=== PATIENT | female | born 1990 | race Two or more races ===

== ENCOUNTER 2016-06-02 14:49 | Emergency (ER) | payer MEDICAID ==
--- NOTE | 2016-06-02 16:14 | ER Document Report ---
Addendum entered and electronically signed by CINDY URIAS NP 06/02/16 16:18 : Course - Re-evaluation Re-evalutation: 06/02/16 16:17 She is 33 weeks with twins. - Vital Signs Vital signs: Temp Pulse Resp BP Pulse Ox 98.0 F 101 H 18 134/84 H 100 06/02/16 15:56 06/02/16 15:56 06/02/16 15:56 06/02/16 15:56 06/02/16 15:56 Original Note: ED Medical Screen (RME) - General Stated Complaint: VAGINAL PAIN Time seen by provider: 16:16 Mode of Arrival: Ambulatory Information source: Patient Notes: 25-year-old female complaining of a skin tag on the left labia majora since she pulled a tick out one year ago. He got red and swollen to months ago. Worse over the past week. No drainage. I have greeted and performed a rapid initial assessment of this patient. A comprehensive ED assessment, evaluation of the patient, analysis of test results , and completion of the medical decision making process will be contacted by additional ED providers. TRAVEL OUTSIDE OF THE [place] IN LAST 30 DAYS: No Past Medical History Neurological Medical History: Reports: Hx Migraine - Immunizations Hx Diphtheria, Pertussis, Tetanus Vaccination: Yes Physical Exam - Vital signs Vitals: Temp Pulse Resp BP Pulse Ox 98.0 F 101 H 18 134/84 H 100 06/02/16 15:56 06/02/16 15:56 06/02/16 15:56 06/02/16 15:56 06/02/16 15:56 Course - Vital Signs Vital signs: Temp Pulse Resp BP Pulse Ox 98.0 F 101 H 18 134/84 H 100 06/02/16 15:56 06/02/16 15:56 06/02/16 15:56 06/02/16 15:56 06/02/16 15:56
--- NOTE | 2016-06-02 20:53 | ER Document Report ---
ED Skin Rash/Insect Bite/Abscs - General Chief Complaint: Vaginal lip swelling/ pain Stated Complaint: VAGINAL PAIN Time seen by provider: 20:48 Mode of Arrival: Ambulatory Information source: Patient Notes: 25-year-old female presents to ED for a skin tag to her left labia majora that has now become painful. No redness swelling or drainage noted TRAVEL OUTSIDE OF THE [place] IN LAST 30 DAYS: No - HPI Patient complains to provider of: Skin rash/lesion Onset: Other - A year patient states is more tender the last couple weeks Onset/Duration: Intermittent Quality of pain: Sharp - Very irritating when she's putting her clothes on and off she says Severity: Moderate Pain Level: 3 Skin Character: Other - Painful skin tag on the left labia majora Skin Temperature: Warm Quality of rash: Painful Identify cause: No Exacerbated by: Other - When dressing Relieved by: Denies Similar symptoms previously: Yes Recently seen / treated by doctor: Yes - Related Data Allergies/Adverse Reactions: No Known Allergies Allergy (Unverified 06/02/16 21:38) Past Medical History - General Information source: Patient - Social History Smoking Status: Unknown if Ever Smoked Cigarette use (# per day): No Chew tobacco use (# tins/day): No Smoking Education Provided: No Frequency of alcohol use: None Drug Abuse: None Lives with: Family Family History: CAD, CVA, DM, Hyperlipidemia, Hypertension, Malignancy. denies : Thyroid Disfunction Patient has suicidal ideation: No Patient has homicidal ideation: No - Past Medical History Cardiac Medical History: Reports: None Pulmonary Medical History: Reports: None EENT Medical History: Reports: None Neurological Medical History: Reports: Hx Migraine Endocrine Medical History: Reports: None Renal/ Medical History: Reports: None Malignancy Medical History: Reports: None GI Medical History: Reports: None Musculoskeltal Medical History: Reports None Skin Medical History: Reports None Psychiatric Medical History: Reports: None Traumatic Medical History: Reports: None Infectious Medical History: Reports: None Surgical Hx: Negative Past Surgical History: Reports: None - Immunizations Hx Diphtheria, Pertussis, Tetanus Vaccination: Yes Review of Systems - Review of Systems Constitutional: No symptoms reported EENT: No symptoms reported Cardiovascular: No symptoms reported Respiratory: No symptoms reported Gastrointestinal: No symptoms reported Genitourinary: No symptoms reported Female Genitourinary: No symptoms reported Musculoskeletal: No symptoms reported Skin: Other - Painful skin tag to left labia majora Hematologic/Lymphatic: No symptoms reported Neurological/Psychological: No symptoms reported Physical Exam - Vital signs Vitals: Temp Pulse Resp BP Pulse Ox 98.0 F 101 H 18 134/84 H 100 06/02/16 15:56 06/02/16 15:56 06/02/16 15:56 06/02/16 15:56 06/02/16 15:56 Interpretation: Normal - General General appearance: Appears well, Alert - HEENT Head: Normocephalic, Atraumatic Eyes: Normal Pupils: PERRL - Respiratory Respiratory status: No respiratory distress Chest status: Nontender Breath sounds: Normal Chest palpation: Normal - Cardiovascular Rhythm: Regular Heart sounds: Normal auscultation Murmur: No - Abdominal Inspection: Normal Distension: No distension Bowel sounds: Normal Tenderness: Nontender Organomegaly: No organomegaly - Genitourinary External exam: Other - Painful skin tag the left labia majora no swelling or redness noted - Back Back: Normal, Nontender - Extremities General upper extremity: Normal inspection, Nontender, Normal color, Normal ROM , Normal temperature General lower extremity: Normal inspection, Nontender, Normal color, Normal ROM , Normal temperature, Normal weight bearing. No: Lina's sign - Neurological Neuro grossly intact: Yes Cognition: Normal Orientation: AAOx4 Vianney Coma Scale Eye Opening: Spontaneous [place] Coma Scale Verbal: Oriented [place]ian[place] Coma Scale Motor: Obeys Commands Vianney Coma Scale Total: 15 Speech: Normal Motor strength normal: LUE, RUE, LLE, RLE Sensory: Normal - Psychological Associated symptoms: Normal affect, Normal mood - Skin Skin Temperature: Warm Skin Moisture: Dry Skin Color: Normal Skin irregularity: other - Painful skin tag the left labia majora no swelling or redness noted Irregularity with: Tenderness. negative: Swelling, Warmth, Lymphangitis, Induration, Thickening, Scaling, Well defined border, Crusting, Inflammation, Weeping, Rough texture-sand paper, Pityriasis rosea, Other Course - Vital Signs Vital signs: Temp Pulse Resp BP Pulse Ox 98.6 F 112 H 18 124/77 97 06/02/16 21:14 06/02/16 21:14 06/02/16 15:56 06/02/16 21:14 06/02/16 21:14 Procedures - Incision and Drainage Left Labia Time completed: 20:52 Type: Simple Anesthetic type: 1% Lidocaine mL's of anesthetic: 3 Blade size: 11 - Painful skin tag the left labia majora no swelling or redness noted. Patient states that all of her close really irritate the area and one of the skin tag removed. I&D procedure: Betadine prep applied Incision Method: Incision made by scalpel Amount/type of drainage: skin tag removed from left labia majora Discharge - Discharge Clinical Impression: painful skin tag left labia majora Condition: Stable Disposition: HOME, SELF-CARE Additional Instructions: You came in today for painful skin intact to your left labia majora. You stated that over temperature close on and off that this irritated this area. You stated this seemed to be growing for the last couple months. A suture was tied around the skin tag is close to the labia as possible. The area was numbed with lidocaine The area was cleaned well with Betadine and then the skin tag was removed. There was no bleeding or any drainage from the area please have your TWISTING MACHINE OPERATOR remove the suture in the next couple days. Soap Cleansing Gently wash the wound daily using a mild soap (like Ivory, Phisoderm, Neutrogena). Use warm water, rubbing gently until all debris, ooze, and crusting have been washed from the wound. Allow to dry briefly (about 10 minutes) after cleaning. Repeat this cleansing at least three times a day for the first two days and then once or twice a day. Antibiotic Ointment Protection Your wounds are such that dressing them is not practical or optional. After cleansing, you should apply a thin coating of antibiotic ointment ( Bacitracin, not Neosporin) to the wounds at least three times daily. This lessens infection risk, and may decrease the amount of scarring. Use a q-tip or dull butter knife, not your finger, to apply this ointment. Any debris or ooze which builds up in the ointment should be gently rubbed off with a sterile gauze pad. Harder crusting may need to be gently scrubbed off with a clean wash cloth with soap and warm water, perhaps applying a warm, wet wash cloth to the wound for ten minutes first. Development of redness, severe itching, or blistering may mean allergy to the ointment. See the doctor. Acetaminophen Acetaminophen may be taken for pain relief or fever control. It's much safer than aspirin, offering a wider range of "safe" dosages. It is safe during . Some brand names are Tylenol, Panadol, Datril, Anacin 3, Tempra, and Liquiprin. Acetaminophen can be repeated every four hours. The following are maximum recommended dosages: WEIGHT Dose Drops Elixir Chewable( 80mg) (LBS.) drprs=droppers tsp=teaspoon 6 40 mg .4 ml (1/2) 6-11 80 mg .8 ml (full) 1/2 tsp 1 tab 12-16 120 mg 1 1/2 drprs 3/4 tsp 1 1/2 tabs 17-23 160 mg 2 drprs 1 tsp 2 tabs 24-30 240 mg 3 drprs 1 1/2 tsp 3 tabs 30-35 320 mg 2 tsp 4 tabs 36-41 360 mg 2 1/4 tsp 4 1 /2 tabs 42-47 400 mg 2 1/2 tsp 5 tabs 48-53 480 mg 3 tsp 6 tabs 54-59 520 mg 3 1/4 tsp 6 1 /2 tabs 60-64 560 mg 3 1/2 tsp 7 tabs 65-70 600 mg 3 3/4 tsp 7 1 /2 tabs 71-76 640 mg 4 tsp 8 tabs 77-82 720 mg 4 1/2 tsp 9 tabs 83-88 800 mg 5 tsp 10 tabs >89 pounds or adults 650 mg to 900 mg Acetaminophen can be repeated every four hours. Maximum daily dose not to exceed 4000 mg. These maximum recommended dosages are slightly higher than the dosages written on the product container, but these dosages are very safe and well below the toxic dosage for acetaminophen. FOLLOW-UP CARE: If you have been referred to a physician for follow-up care, call the physician s office for an appointment as you were instructed or within the next two days. If you experience worsening or a significant change in your symptoms, notify the physician immediately or return to the Emergency Department at any time for re-evaluation. Forms: Elevated Blood Pressure Referrals: [facility] [Provider Group] - Follow up as needed
[2016-06-02 21:15] VITALS: BP 124/77
== END 2016-06-02 21:38 | disposition home or self-care (01) ==
LOC: ER 14:49
PROC: 0U9MXZZ Drainage of Vulva, External Approach (ICD-10-PCS; principal; 2016-06-02)
DX: N76.4 Abscess of vulva (principal); R10.2 Pelvic and perineal pain
CPT/HCPCS: 99283

== ENCOUNTER 2016-06-07 15:51 | Outpatient (CLI) | payer MEDICAID ==
--- NOTE | 2016-06-07 17:13 | Non Stress Test Report ---
Non Stress Test Datetime Report Generated by CPN: 06/07/2016 17:13 DEMOGRAPHIC Test Number: 1 EGA NST: 34.3 INDICATION Indication for Study: Ordered by Provider MONITORING Monitor Explained: Monitor Explained; Test Explained; Patient Verbalized Understanding Time on Monitor: 06/07/2016 16:19 Time off Monitor: 06/07/2016 17:00 NST Duration: 41 NST INTERVENTIONS NST Interventions: PO Hydration Physician Notified NST: Dr. Pack BABY A: [id number] BABY A Movement : Present Contraction Frequency : Occasional FHR Baseline : 130 Accelerations : 15X15 Decelerations : None Variability : Moderate 6-25bpm NST Review: Meets Criteria for Reactive NST NST Review and Verified By : Kayleigh Hawkins RNC NST Results: Reactive BABY B Movement: Present FHR Baseline: 135 Accelerations: 15X15 Decelerations: Variable Variability: Moderate 6-25bpm NST Review: Meets Criteria for Reactive NST NST Reviewed And Verified By: D Bellavance RNc NST Results: Reactive NST REPORT Report Trigger: Send Report
== END 2016-06-07 17:03 | disposition home or self-care (01) ==
LOC: LC 15:51
PROVIDERS: ATTEND Obstetrics & Gynecology
PROC: 4A1HXCZ Monitoring of Products of Conception, Cardiac Rate, External Approach (ICD-10-PCS; principal; 2016-06-07)
DX: O47.03 False labor before 37 completed weeks of gestation, third trimester (principal); Z3A.34 34 weeks gestation of pregnancy
CPT/HCPCS: 59025

== ENCOUNTER 2016-06-18 14:48 | Inpatient (IN) | payer MEDICAID ==
[~2016-06-18 14:48] MED LIST: DEXAMETHASONE SOD PHOSPHATE INJ 4 MG/1 ML VIAL ONE; KETOROLAC TROMETHAMINE 60 MG/2 ML SDV ONE; ONDANSETRON HCL INJ/PF 4 MG/2 ML SDV ONE
[2016-06-18] MEDS ORDERED: RINGERS SOLUTION,LACTATED 1,000 ML IV PRN ×2 (15:37→20:05)
[2016-06-18] MEDS ORDERED: DEXTROSE 5%-LACTATED RINGERS 1,000 ML IV PRN (15:37)
[2016-06-18] MEDS ORDERED: RINGERS SOLUTION,LACTATED 1,000 ML IV ONE (15:37)
[2016-06-18] MEDS ORDERED: PENICILLIN G POTASSIUM 5,000,000 UNIT in DEXTROSE 5%-WATER 100 ML IV ONE (15:37)
[2016-06-18] MEDS ORDERED: OXYTOCIN/NORMAL SALINE 20 UNIT/1,000 ML RTUINJ ONE ×2 (15:48→17:54)
[2016-06-18] MEDS ORDERED: LIDOCAINE 1% INJ-PF (10 MG/ML) 30 ML SDV ONE (15:48)
[2016-06-18] MEDS ORDERED: MISOPROSTOL 0.2 MG TABLET ONE (15:48)
[2016-06-18] MEDS ORDERED: PENICILLIN G-K 5 MILLION UNIT VIAL ONE (15:48)
--- NOTE | 2016-06-18 16:00 | L&D Flow Sheet ---
LD Flowsheet Datetime Report Generated by CPN: 06/18/2016 16:00 Datetime: 06/18/2016 15:49 Vital Signs NBP Sys/Debra/Mean (mmHg): 132 (QS system process) : 97 (QS system process) : 110 (QS system process) Pulse: 110 (QS system process) Datetime: 06/18/2016 15:30 Vital Signs NBP Sys/Debra/Mean (mmHg): 129 (QS system process) : 81 (QS system process) : 99 (QS system process) Pulse: 102 (QS system process) Datetime: 06/18/2016 15:08 Vital Signs NBP Sys/Debra/Mean (mmHg): 140 (QS system process) : 68 (QS system process) : 97 (QS system process) Pulse: 110 (QS system process)
[2016-06-18 16:02] LABS: APPEARANCE,URINE CLOUDY; BILIRUBIN,URINE NEGATIVE (NEGATIVE); CALCIUM OXALATE CRYSTALS,URINE MODERATE /HPF; GLUCOSE, URINE NEGATIVE (NEGATIVE); KETONES,URINE TRACE mg/dL (NEGATIVE); LEUKOCYTE ESTERASE,URINE LARGE (NEGATIVE); NITRITE,URINE NEGATIVE (NEGATIVE); PROTEIN,URINE 30 mg/dL (NEGATIVE); UROBILINOGEN,URINE NEGATIVE mg/dL (<2.0)
[2016-06-18 16:13] LABS: URINE BARBITURATES SCREEN NEGATIVE; URINE METHADONE SCREEN NEGATIVE; URINE OPIATES LOW NEGATIVE; URINE PHENCYCLIDINE SCREEN NEGATIVE
[2016-06-18 16:31] LABS: ABSOLUTE LYMPHOCYTES (AUTO) 1.8 10^3/uL (0.5-4.7); ABSOLUTE MONOCYTES (AUTO) 0.8 10^3/uL (0.1-1.4); ABSOLUTE NEUT (AUTO) 7.5 10^3/uL (1.7-8.2); BASOPHILS % (AUTO) 0.5 % (0-2); EOSINOPHILS % (AUTO) 0.3 % (0-6); HEMATOCRIT 30.7 % (36.0-47.0); HEMOGLOBIN 9.9 g/dL (12.0-15.5); LYMPHOCYTES % (AUTO) 17.9 % (13-45); MEAN CORPUSCULAR HGB CONC 32.2 g/dL (32.0-36.0); MEAN CORPUSCULAR VOLUME 71 fl (80-97); MONOCYTES % (AUTO) 7.9 % (3-13); RED BLOOD COUNT 4.29 10^6/uL (3.72-5.28); SEGMENTED NEUTROPHILS % (AUTO) 73.4 % (42-78); WHITE BLOOD COUNT 10.2 10^3/uL (4.0-10.5)
[2016-06-18] MEDS ORDERED: FENTANYL CITRATE INJ/PF 100 MCG/2 ML AMPUL ONE ×2 (16:39→17:54)
[2016-06-18] MEDS ORDERED: FENTANYL/BUPIVACAINE/NS/PF 200 MCG/100 ML RTUINJ EPI ONE (16:40)
[2016-06-18] MEDS ORDERED: EPHEDRINE SULFATE INJ 50 MG/1 ML AMPULE ONE (16:40)
[2016-06-18] MEDS ORDERED: PHENYLEPHRINE HCL INJ/PF 10 MG/1 ML SDV ONE (16:40)
[2016-06-18] MEDS ORDERED: BUPIVACAINE HCL 0.25 % INJ/PF (2.5 MG/1 ML) 30 ML VIAL ONE (16:40)
[2016-06-18] MEDS ORDERED: LIDOCAINE 2%/EPINEPHRINE INJ 20 ML VIAL ONE ×2 (17:13→17:51)
[2016-06-18] MEDS ORDERED: SODIUM BICARBONATE 8.4% INJ 50 MEQ/50 ML DISP.SYRIN ONE (17:14)
[2016-06-18] MEDS ORDERED: KETAMINE HCL INJ 500 MG/10 ML VIAL ONE (17:54)
[2016-06-18] MEDS ORDERED: OXYTOCIN 10 UNIT/ML VIAL ONE (17:54)
[2016-06-18] MEDS ORDERED: MIDAZOLAM 2 MG/2 ML INJ ONE (17:55)
[2016-06-18] MEDS ORDERED: CEFAZOLIN 1 GM/D5W RTU 1 GM/50 ML RTUPB IV ONE (17:59)
--- NOTE | 2016-06-18 18:00 | L&D Flow Sheet ---
LD Flowsheet Datetime Report Generated by CPN: 06/18/2016 18:00 Datetime: 06/18/2016 16:29 NBP Sys/Debra/Mean (mmHg): 137 (QS system process) : 76 (QS system process) : 101 (QS system process) Pulse: 85 (QS system process) Datetime: 06/18/2016 16:18 NBP Sys/Debra/Mean (mmHg): 136 (QS system process) : 81 (QS system process) : 104 (QS system process) Pulse: 98 (QS system process) Datetime: 06/18/2016 16:05 Dilatation (cm): 6.0 (Irma Bellavance, RNC) Effacement (%): 90 (Irma Bellavance, RNC) Station: -1 (Irma Bellavance, RNC) Exam by: GLYNN Hackett (Irma Bellavance, RNC) Membrane Status: Ruptured (Irma Bellavance, RNC) Membranes Rupture Method: Artificial (Irma Bellavance, RNC) Amniotic Fluid Color: Clear (Irma Bellavance, RNC) Amniotic Fluid Amount: Moderate (Irma Bellavance, RNC) Amniotic Fluid Odor: Normal (Irma Bellavance, RNC) Vaginal Bleeding: None (Irma Bellavance, RNC) Cervix, Consistency: Moderate (Irma Bellavance, RNC) Cervix, Position: Anterior (Irma Bellavance, RNC) Antibiotics: Penicillin IV (Units) @ 5 Mill (Irma Bellavance, RNC) Datetime: 06/18/2016 16:00 Pain Scale: 3 (Irma Bellavance, RNC) Pain Presence: Intermittent (Irma Bellavance, RNC) Pain Type: Cramping; Contraction (Irma Bellavance, RNC) Pain Location: Abdomen; Back (Irma Bellavance, RNC) Pain Goal: 1 (Irma Bellavance, RNC) Vaginal Bleeding: None (Irma Bellavance, RNC) Level of Consciousness: Fully Conscious (Irma Bellavance, RNC) Headache: Denies (Irma Bellavance, RNC) Breath Sounds, Left: Clear and Equal (Irma Bellavance, RNC) Breath Sounds, Right: Clear and Equal (Irma Bellavance, RNC) Nausea/Vomiting: Denies (Irma Bellavance, RNC) RUQ Epigastric Pain: Denies (Irma Bellavance, RNC)
[2016-06-18] MEDS ORDERED: ACETAMINOPHEN 100 ML IV ONE (18:39)
[2016-06-18] MEDS ORDERED: MEPERIDINE HCL/PF INJ 25 MG/1 ML DISP.SYRIN ONE (19:16)
[2016-06-18] MEDS ORDERED: PENICILLIN G POTASSIUM 2,500,000 UNIT in DEXTROSE 5%-WATER 50 ML IV SCH (19:39)
[2016-06-18] MEDS ORDERED: PENICILLIN G-K 5 MILLION UNIT VIAL IV SCH (20:00)
[2016-06-18] MEDS ORDERED: MEASLES,MUMPS&RUBELLA VACC/PF 0.5 ML VIAL SUBCUT PRN (20:05)
[2016-06-18] MEDS ORDERED: PROMETHAZINE HCL INJ 25 MG/1 ML VIAL IV PRN (20:05)
[2016-06-18] MEDS ORDERED: ACETAMINOPHEN 325 MG TABLET PO PRN (20:05)
[2016-06-18] MEDS ORDERED: OXYCODONE-ACETAMINOPHEN 5-325 MG TABLET PO PRN (20:05)
[2016-06-18] MEDS ORDERED: OXYTOCIN/NORMAL SALINE 1,000 ML IV PRN (20:05)
[2016-06-18] MEDS ORDERED: DIPH/PERTUSS(ACELL)/TETANUS VAC/PF 0.5 ML SYR (>=10YO) IM PRN (20:05)
--- NOTE | 2016-06-18 20:11 | Admission Physical ---
Datetime Report Generated by CPN: 06/18/2016 20:11 CURRENT ADMISSION Chief Complaint: Uterine Contractions Indication for Induction- Other: twin gestation di/di Admit Plan: Admit to Unit ALLERGIES Medication Allergies: No Medication Allergies: No Known Allergies (06/07/2016) Latex: No Latex Allergies Food Allergies: N/A Environmental Allergies: N/A OBSTETRICAL HISTORY EDC: 07/16/2016 00:00 : 3 Para: 1 Term: 1 : 0 Ectopic: 0 Livin Cesareans: 0 VBACs: 0 Multiple Births: 0 Gestational Diabetes: Yes Rh Sensitization: No Incompetent Cervix: No NICKY: No Infertility: No ART Treatment: No Uterine Anomaly: No IUGR: No Hx Previous C/S: No Macrosomia: No Hx Loss/Stillborn: No PIH: No Hx : No Placenta Previa/Abruption: No Depression/PP Depression: Yes PTL/PROM: No Post Hemorrhage: No Current Procedures: NST Obstetrical History Comments: 2008 baby boy, 8 lb 0 oz, 3 hours labor Current: Twin A breech, Marginal cord insertion; Late PNC; GDM -Diet controlled SEE RECORDS Alcohol: No Marijuana : No Cocaine: No Other Illicit Drugs: No Cigarettes: Former Smoker. 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 Heart Disease: No Hosp/Surgery: No Autoimmune Disorder: No Anesthetic Complications: No Kidney Disease: No Abnormal Pap Smear: No Neuro/Epilepsy: No Psychiatric Disorders: No Other Medical Diseases: Yes Hepatitis/Liver Disease: No Significant Family History: No Varicosities/Phlebitis: No Trauma/Violence : No Thyroid Dysfunction: No Medical History Comments: GDM: Diet controlled Depression: History of depression INFECTIOUS HISTORY Gonorrhea: No Genital Herpes: Yes Chlamydia: No Tuberculosis: No Syphilis: No Hepatitis: No HIV/AIDS Exposure: No Rash or Viral Illness: No HPV: No Infectious History Comments: HSV: Diagnosed 2013 PHYSICAL EXAM General: Normal HEENT: Normal Neurologic: Normal Thyroid: Normal Heart: Normal Lungs: Normal Breast: Normal Back: Normal Abdomen: Normal Genitourinary Exam: Normal Extremities: Normal DTRs: Normal Pelvic Type: Adequate FETUS A EGA: 36.0 Monitoring: External US Accelerations: 15X15 Decelerations: None Presentation: Vertex Admit Comment: 25 yo admitted for advanced cervical dilatation EDC 07/16/16 unremarkable phx unknown GBS abdomen nontender FHTS reactive uterine contractions 2-3 min cervix 6-7/c/-1 Twin Gestation di/ di twins admit GBs prophylaxis anticipate FETUS B Monitoring: External US; Auscultation PLANS FOR LABOR AND DELIVERY Labor and Delivery: None Pain Management: Epidural Feeding Preference: Formula Benefit of Breast Feed Discussed: Yes Circumcision: Yes INFORMED CONSENT Assignment: Lana Pack MD Signature: with User ID: [email or web address] : with User ID: [email or web address]
[2016-06-18] MEDS: HYDROMORPHONE HCL INJ/PF 2 MG/ML AMPULE IV PRN (20:46)
[2016-06-18] MEDS: KETOROLAC TROMETHAMINE INJ/PF 30 MG/1 ML SDV IV SCH (21:59)
[2016-06-18] MEDS: OXYCODONE-ACETAMINOPHEN 5-325 MG TABLET PO PRN (23:24)
[2016-06-19] MEDS: HYDROMORPHONE HCL INJ/PF 2 MG/ML AMPULE IV PRN (01:14)
[2016-06-19] MEDS: KETOROLAC TROMETHAMINE INJ/PF 30 MG/1 ML SDV IV SCH ×2 (05:35→13:32)
--- NOTE | 2016-06-19 07:00 | L&D Flow Sheet ---
LD Flowsheet Datetime Report Generated by CPN: 06/19/2016 07:00 Datetime: 06/18/2016 20:06 Pulse: 86 (QS system process) SpO2 (%): 87 (QS system process) Datetime: 06/18/2016 20:01 NBP Sys/Debra/Mean (mmHg): 134 (QS system process) : 70 (QS system process) : 94 (QS system process) Pulse: 90 (QS system process) Pulse: 88 (QS system process) Respirations: 18 (Nicci Twyla, RN) SpO2 (%): 88 (QS system process) Temperature (F): 97.9 (Nicci Wakefield, RN) Temperature (C): 36.6 (QS system process) Temperature Route: Axillary (Nicci Wakefield, RN) Datetime: 06/18/2016 19:57 Pulse: 113 (QS system process) SpO2 (%): 91 (QS system process) Pain Presence: None/Denies (Nicci Wakefield RN) Datetime: 06/18/2016 19:56 Pulse: 112 (QS system process) SpO2 (%): 99 (QS system process) Datetime: 06/18/2016 19:51 Pulse: 92 (QS system process) SpO2 (%): 100 (QS system process) Datetime: 06/18/2016 19:47 NBP Sys/Debra/Mean (mmHg): 134 (QS system process) : 66 (QS system process) : 93 (QS system process) Pulse: 93 (QS system process) Datetime: 06/18/2016 19:46 Pulse: 91 (QS system process) SpO2 (%): 100 (QS system process) Datetime: 06/18/2016 19:41 Pulse: 88 (QS system process) SpO2 (%): 100 (QS system process) Datetime: 06/18/2016 19:36 Pulse: 96 (QS system process) SpO2 (%): 100 (QS system process) Datetime: 06/18/2016 19:31 Pulse: 90 (QS system process) SpO2 (%): 100 (QS system process) Datetime: 06/18/2016 19:30 NBP Sys/Debra/Mean (mmHg): 126 (QS system process) : 60 (QS system process) : 87 (QS system process) Pulse: 98 (QS system process) Respirations: 20 (Nicci Twyla, RN) Pain Presence: None/Denies (Nicci Twyla, RN) Datetime: 06/18/2016 19:26 NBP Sys/Debra/Mean (mmHg): 136 (Annotations: cuff placed on right leg where shaking is not as severe ) (Nicci Twyla, RN) : 62 (QS system process) : 89 (QS system process) Pulse: 93 (QS system process) Pulse: 97 (QS system process) SpO2 (%): 100 (QS system process) Datetime: 06/18/2016 19:21 Pulse: 115 (QS system process) SpO2 (%): 91 (QS system process) Datetime: 06/18/2016 19:20 NBP Sys/Debra/Mean (mmHg): 180 (QS system process) : 142 (QS system process) : 156 (QS system process) Pulse: 108 (QS system process) Datetime: 06/18/2016 19:16 NBP Sys/Debra/Mean (mmHg): 184 (QS system process) : 132 (QS system process) : 154 (QS system process) Pulse: 104 (QS system process) Pulse: 116 (QS system process) SpO2 (%): 93 (QS system process) Datetime: 06/18/2016 19:13 Pulse: 118 (QS system process) SpO2 (%): 94 (QS system process) Datetime: 06/18/2016 19:11 Pulse: 115 (QS system process) SpO2 (%): 96 (QS system process) Datetime: 06/18/2016 19:09 NBP Sys/Debra/Mean (mmHg): 185 (QS system process) : 116 (QS system process) : 146 (QS system process) Pulse: 116 (QS system process) Datetime: 06/18/2016 19:06 Pulse: 108 (QS system process) SpO2 (%): 95 (QS system process) Datetime: 06/18/2016 19:01 Pulse: 106 (QS system process) Pulse: 107 (QS system process) SpO2 (%): 91 (QS system process) SpO2 (%): 96 (QS system process) Datetime: 06/18/2016 19:00 Stage of : Recovery (Irma Bellavance, RNC) Pulse: 100 (Irma Bellavance, RNC) Respirations: 16 (Irma Bellavance, RNC) SpO2 (%): 98 (Irma Bellavance, RNC)
[2016-06-19 07:23] LABS: HEMATOCRIT 29.5 % (36.0-47.0); HEMOGLOBIN 9.4 g/dL (12.0-15.5); HGB HCT DIFFERENCE -1.3; MEAN CORPUSCULAR HEMOGLOBIN 22.6 pg (27.0-33.4); MEAN CORPUSCULAR VOLUME 71 fl (80-97); RED BLOOD COUNT 4.18 10^6/uL (3.72-5.28); WHITE BLOOD COUNT 18.6 10^3/uL (4.0-10.5)
[2016-06-19] MEDS: DOCUSATE SODIUM 100 MG CAPSULE PO SCH ×2 (10:37→18:46)
[2016-06-19] MEDS: PRENATAL VITAMIN W-O CA NO5/FE FUMARATE/FA CAPSULE PO SCH (10:37)
[2016-06-19] MEDS: OXYCODONE-ACETAMINOPHEN 5-325 MG TABLET PO PRN ×3 (11:25→23:01)
--- NOTE | 2016-06-19 14:10 | PDOC PROGRESS REPORT ---
Subjective-OB Subjective: Post Delivery Day: 25 year old. Denies any needs at this time. Pt doing well, no concerns. She reports light bleeding, regular diet and voiding well. Physical Exam (OB) Vital Signs: Temp Pulse Resp BP Pulse Ox 97.7 F 79 18 131/65 H 98 06/19/16 13:19 06/19/16 13:19 06/19/16 13:19 06/19/16 13:19 06/19/16 13:19 Intake & Output 06/18/16 06/19/16 06/20/16 06:59 06:59 06:59 Intake Total 2900 Output Total 2400 500 Balance 500 -500 Weight 96.615 kg - Dressing Removed: No Incision: Dressing - Lochia Lochia Amount: Scant < 10 ml Lochia Color: Rubra/Red - Abdomen Description: Tender, Soft, Round Hernia Present: No Fundal Description: Firm, Midline Fundal Height: u/u - u/2 Objective-Diagnostic Laboratory: 06/19/16 06:50 06/18/16 06/18/16 06/18/16 15:25 16:06 16:06 WBC 10.2 RBC 4.29 Hgb 9.9 L Hct 30.7 L MCV 71 L MCH 23.0 L MCHC 32.2 RDW 18.0 H Plt Count 217 Seg Neutrophils % 73.4 Lymphocytes % 17.9 Monocytes % 7.9 Eosinophils % 0.3 Basophils % 0.5 Absolute Neutrophils 7.5 Absolute Lymphocytes 1.8 Absolute Monocytes 0.8 Absolute Eosinophils 0.0 Absolute Basophils 0.0 Urine Color VINICIO Urine Appearance CLOUDY Urine pH 5.0 Ur Specific [place] 1.020 Urine Protein 30 H Urine Glucose (UA) NEGATIVE Urine Ketones TRACE H Urine Blood NEGATIVE Urine Nitrite NEGATIVE Ur Leukocyte Esterase LARGE H Urine WBC (Auto) 11 Urine RBC (Auto) 7 Blood Type O POSITIVE Antibody Screen NEGATIVE 06/19/16 06:50 WBC 18.6 H RBC 4.18 Hgb 9.4 L Hct 29.5 L MCV 71 L MCH 22.6 L MCHC 32.0 RDW 18.0 H Plt Count 206 Seg Neutrophils % Lymphocytes % Monocytes % Eosinophils % Basophils % Absolute Neutrophils Absolute Lymphocytes Absolute Monocytes Absolute Eosinophils Absolute Basophils Urine Color Urine Appearance Urine pH Ur Specific [place] Urine Protein Urine Glucose (UA) Urine Ketones Urine Blood Urine Nitrite Ur Leukocyte Esterase Urine WBC (Auto) Urine RBC (Auto) Blood Type Antibody Screen Assessment and Plan(PN) - Assessment and Plan (1) Twin delivered vaginally Is this a current diagnosis for this admission?: Yes (2) Twin, delivered by Is this a current diagnosis for this admission?: Yes - Time Spent with Patient Time with patient: Less than 15 minutes Medications reviewed and adjusted accordingly: Yes - Disposition Anticipated Discharge: Home
--- NOTE | 2016-06-19 18:00 | L&D Current Admission ---
Current Admit Datetime Report Generated by CPN: 06/19/2016 18:00 ADMISSION INFORMATION Current Admit Date/Time: 06/18/2016 16:00 (06/18/2016 16:00:KATRINA Madden) Reason for Admission: Other; Labor Check/Investigation of Chief Complaint (06/18/2016 16:00:KATRINA Madden) Chief Complaint: Other (Annotations: PT admitted from [facility] ) (06/18/2016 16:00:KATRINA Madden) Medications During : Diphenhydramine (Benedryl); Vitamin; Acetaminophen (Tylenol); Rantidine (Zantac) (06/18/2016 16:00:KATRINA Madden) Meds During -Oth: Also took antibiotic for UTI (06/18/2016 16:00:KATRINA Madden) EGA per Dates: 36.0 (06/18/2016 16:00:QS system process) Method of Arrival: Wheelchair (06/18/2016 16:00:KATRINA Madden) Admitted From: Dr. Forerst (06/18/2016 16:00:KATRINA Madden) Reason for Induction- Other: PT admitted from [facility] (06/18/2016 16:00:KATRINA Madden) Records Available: Yes (06/18/2016 16:00:KATRINA Madden) General Admission Information: Reviewed (06/18/2016 16:00:KATRINA Madden) BELONGINGS/ADVANCED DIRECTIVES Disposition of Belongings: Kept with Patient (06/18/2016 16:00:KATRINA Madden) Comments Regarding Disposition: Kept with patients layla (Jemal Alonzo) (06/18/2016 16:00:KATRINA Madden) Advance Direct for Healthcare: No, and Wants No Information (06/18/2016 16:00:KATRINA Madden) Durable Power of Operator Control Room: No (06/18/2016 16:00:KATRINA Madden) Living Will: No (06/18/2016 16:00:KATRINA Madden) Organ Donor: No (06/18/2016 16:00:KATRINA Madden) Pt Rights Information Given: Yes (06/18/2016 16:00:KATRINA Madden) Pt Understands Pt Rights: Yes (06/18/2016 16:00:KATRINA Madden) LEARNING ASSESSMENT Knowledge Level: Understands L_D Process (06/18/2016 16:00:Irma Hawkins RNC) Barriers to Learning: None (06/18/2016 16:00:Irma Hawkins RNC) Learning Readiness: Motivated (06/18/2016 16:00:Irma Hawkins RNC) Learns Best By: 1 to 1 Instruction; Reading; Videos; Group Discussion; Demonstration (06/18/2016 16:00:Irma Hawkins RNC) Learning Needs: Labor and Delivery Process; Pain Management; Symptoms to Report; Treatment Plan; Medication; Diagnosis; Nutrition; Equipment; Infant Care (06/18/2016 16:00:Irma Pembertone, RNC) NUTRITIONAL/FUNCTIONAL SCREENING Problem with Appetite >5 Days: No (06/18/2016 16:00:Irma Sobiance, RNC) Chew/Swallow Difficulties: No (06/18/2016 16:00:Irma Bellavance, RNC) Inappropriate Wt Gain/Loss: No (06/18/2016 16:00:Irma Belldomnce, RNC) Presence Skin Breakdown/Ulcer: No (06/18/2016 16:00:KATRINA Madden) Special Diet: No (06/18/2016 16:00:KATRINA Madden) Pt Requests Ship Pilot Visit: Chary (06/18/2016 16:00:KATRINA Madden) Hx of Any of the Following?: N/A (06/18/2016 16:00:KATRINA Madden) New Diagnosis of: Gest Diabetes; Multiple Gestation (06/18/2016 16:00:KATRINA Madden) Requires Assist w/Ambulation: Chary (06/18/2016 16:00:KATRINA Madden) Uses Assist Device to Ambulate: Chary (06/18/2016 16:00:KATRINA Madden) Pt Requires Help w/ADL's: Chary (06/18/2016 16:00:KATRINA Madden)
--- NOTE | 2016-06-19 18:00 | L&D General Admission ---
General Admit Datetime Report Generated by CPN: 06/19/2016 18:00 INFORMATION Patient Age: 25 (05/20/2016 13:54:QS system process) EDC: 07/16/2016 00:00 (06/07/2016 16:24:Christine Green RN) : 3 (06/07/2016 16:24:Christine Green RN) Para: 1 (06/07/2016 16:24:Freya Soares RN) Term: 1 (06/07/2016 16:24:Christine Green RN) : 0 (06/07/2016 16:24:Christine Green RN) Livin (06/07/2016 16:24:Christine Green RN) Cesareans: 0 (06/07/2016 16:24:Christine Green RN) VBACs: 0 (06/07/2016 16:24:Christine Green RN) Ectopic: 0 (06/07/2016 16:24:Christine Green RN) Multiple Births: 0 (06/07/2016 16:24:Christine Green RN) Baby, Number in Womb: 2 (06/07/2016 16:24:Christine Green RN) CARE Primary Unix Administrator: [facility] (06/07/2016 16:24:Christine Green RN) Month of 1st Visit: 01/2016 (06/07/2016 16:24:Christine Green RN) Adequate Care: No (06/07/2016 16:24:Christine Green RN) Prepregnancy Weight (lb): 183 (06/07/2016 16:24:Freya Soares RN) Prepregnancy Weight (kg): 83.2 (06/07/2016 16:24:QS system process) Height (in): 63 (06/19/2016 11:36:QS system process) ALLERGIES Medication Allergy: No (06/07/2016 16:24:Christine Green RN) Medication Allergies: No Known Allergies (06/07/2016) (06/07/2016 16:22:QS system process) Latex Allergy: No Latex Allergies (06/07/2016 16:24:Christine Green RN) Food Allergies: N/A (06/07/2016 16:24:Christine Green RN) Environmental Allergies: N/A (06/07/2016 16:24:Christine Green RN) COMMUNICATION Primary Language: S[place] Tomean (06/07/2016 16:24:Christine Green RN) Medical Tx Preferred Language: [place]an (06/07/2016 16:24:Christine Green RN) Communication Barrier(s): None (06/07/2016 16:24:Christine Green RN) DEMOGRAPHICS Address: [address] [place] [address] [place] [address] (06/02/2016 21:38:QS system process) Zipcode: [address] (05/20/2016 13:54:QS system process) Home (05/20/2016 13:54:QS system process) N: [phone] (05/20/2016 13:54:QS system process) Next of Kin Name: ROBBIE SONI (05/20/2016 13:54:QS system process) Next of Kin (05/20/2016 13:54:QS system process) Next of Kin Relationship: OR (05/20/2016 13:54:QS system process) Date of : 1990 (05/20/2016 13:54:QS system process) Marital Status: Single (05/20/2016 13:54:QS system process) Sex: Female (05/20/2016 13:54:QS system process) Race: Other (05/20/2016 13:54:QS system process) Ethnicity: or (05/20/2016 13:54:QS system process) Restorationism: None (05/20/2016 13:54:QS system process) DRUG AND ALCOHOL USE Alcohol: No (06/07/2016 16:24:Christine Green RN) Cigarettes: Former Smoker. [id number] (06/07/2016 16:24:Christine Green RN) Marijuana: No (06/07/2016 16:24:Christine Green RN) Cocaine: No (06/07/2016 16:24:Christine Green RN) Other Illicit Drugs: No (06/07/2016 16:24:Christine Green RN) VACCINE HISTORY Influenza Vaccine: No (06/07/2016 16:24:Christine Green RN) Pneumococcal Vaccine: No (06/07/2016 16:24:Christine Green RN) Tetanus Vaccine: Yes (06/07/2016 16:24:Christine Green RN) Tdap Vaccine: Yes (06/07/2016 16:24:Christine Green RN) Hepatitis B Vaccine: Yes (06/07/2016 16:24:Christine Green RN) Felt Hat Steamer: [facility] (06/07/2016 16:24:KATRINA Madden) Feeding Preference: Formula (06/07/2016 16:24:Christine Green RN) Benefit of Breast Feed Discussed: Yes (06/07/2016 16:24:Christine Green RN) Circumcision: Yes (06/07/2016 16:24:Christine Green RN) Classes Attended: No (06/07/2016 16:24:Christine Green RN) Tubal Ligation: Yes (06/07/2016 16:24:Christine Green RN) Tubal Authorization Signed: Yes (06/07/2016 16:24:Christine Green RN) Consent Signed: Yes (06/07/2016 16:24:KATRINA Vasquez) Pain Management Plans: Epidural (06/07/2016 16:24:KATRINA Madden) Plans for Labor and Delivery: None (06/07/2016 16:24:KATRINA Madden) Support Person: Robbie Chavez (06/07/2016 16:24:Christine Green RN) Support Person Relationship: Significant Other (06/07/2016 16:24:Christine Green RN) Cultural/Spritual Practice: No (06/07/2016 16:24:Christine Green RN) Spir/Cult Dietary Needs: No (06/07/2016 16:24:Christine Green RN) LIVING SITUATION/DISCHARGE PLAN Living Arrangements: Apartment (06/07/2016 16:24:Christine Green RN) Adequate Access to:: Electric; Heat; Refrigeration; Plumbing/Running water; Phone; Transportation (06/07/2016 16:24:Christine Green RN) WIC Program: Yes (06/07/2016 16:24:Christine Green RN) Discharge Child Day Care Teacher Person: FOB (06/07/2016 16:24:Christine Green RN) Person to Help after Discharge: FOB (06/07/2016 16:24:Christine Green RN) Currently Using Commun Resources: Yes (06/07/2016 16:24:Christine Green RN) Specify Current Resource Used: Medicaid (06/07/2016 16:24:Christine Green RN) Outside Agency/Elementary School Teacher'S Aide: No (06/07/2016 16:24:Christine Green RN) Car Seat for Discharge: Yes (06/07/2016 16:24:Christine Green RN) Adoption Requested: No (06/07/2016 16:24:Christine Green RN) Pt Contact w/infant Post : N/A (06/07/2016 16:24:Christine Green RN) LABS Blood Type: O Positive (06/07/2016 16:24:Freya Soares RN) Antibody Screen: negative (06/07/2016 16:24:Freya Soares RN) Hemoglobin: 9.4 L (06/19/2016 06:50:QS system process) Hematocrit: 29.5 L (06/19/2016 06:50:QS system process) MCV: 71 L (06/19/2016 06:50:QS system process) Group Beta Strep: unknown (06/07/2016 16:24:Maurizio Rome CNM) RPR/VDRL: Nonreactive (06/07/2016 16:24:Freya Soares RN) HIV Exposure Test: Positive (06/07/2016 16:24:Freya Soares RN) Hepatitis B: Negative (06/07/2016 16:24:Freya Soares RN) Rubella: Immune (06/07/2016 16:24:Freya Soares RN) Varicella: Non Susceptible (06/07/2016 16:24:Freya Soares RN) OB/PREVIOUS HISTORY Current Procedures: NST (06/07/2016 16:24:Christine Green RN) History of Previous : No (06/07/2016 16:24:Christine Green RN) History of Gestational Diabetes: Yes (06/07/2016 16:24:Christine Green RN) History of PIH: No (06/07/2016 16:24:Christine Green RN) History of Incompetent Cervix: No (06/07/2016 16:24:Christine Green RN) History of Placenta Previa/Abrup: No (06/07/2016 16:24:Christine Green RN) History of Macrosomia: No (06/07/2016 16:24:Christine Green RN) History of IUGR: No (06/07/2016 16:24:Christine Green RN) History of Hemorrhage: No (06/07/2016 16:24:Christine Green RN) History of Loss/Stillborn: No (06/07/2016 16:24:Christine Green RN) History of : No (06/07/2016 16:24:Christine Green RN) History of D (Rh) Sensitization: No (06/07/2016 16:24:Christine Green RN) History Recurrent Loss/Stillborn: No (06/07/2016 16:24:Christine Green RN) History Depression/PP Depression: Yes (06/07/2016 16:24:Christine Green RN) History of Uterine Anomaly/NICKY: No (06/07/2016 16:24:Christine Green RN) History of Infertility: No (06/07/2016 16:24:Christine Green RN) History of ART Treatment: No (06/07/2016 16:24:Christine Green RN) History of NICKY: No (06/07/2016 16:24:Christine Green RN) Comments Obstetrical History: 2008 baby boy, 8 lb 0 oz, 3 hours labor Current: Twin A breech, Marginal cord insertion; Late PNC; GDM -Diet controlled (06/07/2016 16:24:Christine Green RN) MEDICAL HISTORY Med Hx Diabetes: Yes (06/07/2016 16:24:Christine Green RN) Diabetes Type: Gestational Diabetes (06/07/2016 16:24:Christine Green RN) Med Hx Hypertension: No (06/07/2016 16:24:Christine Green RN) Med Hx Heart Disease: No (06/07/2016 16:24:Christine Green RN) Med Hx Autoimmune Disorder: No (06/07/2016 16:24:Christine Green RN) Med Hx Kidney Disease/UTI: No (06/07/2016 16:24:Christine Green RN) Med Hx Neurologic/Epilepsy: No (06/07/2016 16:24:Christine Green RN) Med Hx Psychiatric Disorders: No (06/07/2016 16:24:Christine Green RN) Med Hx Hepatitis/Liver Disease: No (06/07/2016 16:24:Christine Green RN) Med Hx Varicosities/Phlebitis: No (06/07/2016 16:24:Christine Green RN) Med Hx Thyroid Dysfunction: No (06/07/2016 16:24:Chirstine Green RN) Med Hx Trauma/Violence: No (06/07/2016 16:24:Christine Green RN) Med Hx Blood Transfusion: No (06/07/2016 16:24:Christine Green RN) Med Hx Pulmonary (Asthma,TB): No (06/07/2016 16:24:Christine Green RN) Med Hx Breast: No (06/07/2016 16:24:Christine Green RN) 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 (06/07/2016 16:24:Christine Green RN) Med Hx Hospitalization/Surgery: No (06/07/2016 16:24:Christine Green RN) Med Hx Anesthetic Complications: No (06/07/2016 16:24:Christine Green RN) Med Hx Abnormal Pap Smear: No (06/07/2016 16:24:Christine Green RN) Other Medical Diseases: Yes (06/07/2016 16:24:Christine Green RN) Med Hx Significant Family Hx: No (06/07/2016 16:24:Christine Green RN) Details of Med/Surg Hx: GDM: Diet controlled Depression: History of depression (06/07/2016 16:24:Christine Green RN) INFECTIOUS HISTORY Inf Hx Gonorrhea: No (06/07/2016 16:24:Christine Green RN) Inf Hx Chlamydia: No (06/07/2016 16:24:Christine Green RN) Inf Hx Syphilis: No (06/07/2016 16:24:Christine Green RN) Inf Hx HIV/AIDS: No (06/07/2016 16:24:Christine Green RN) Inf Hx Human Papilloma Virus: No (06/07/2016 16:24:Christine Green RN) Inf 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 (06/07/2016 16:24:Christine Green RN) Inf Hx Tuberculosis/Exposure: No (06/07/2016 16:24:Christine Green RN) Inf Hx Hepatitis B,C: No (06/07/2016 16:24:Christine Green RN) Inf Hx Rash or Viral Illness: No (06/07/2016 16:24:Christine Green RN) Details of Infectious Hx: HSV: Diagnosed 2013 (06/07/2016 16:24:Christine Green RN) GENETIC HISTORY Gen Hx Age >=35 at BOB: No (06/07/2016 16:24:Christine Green RN) Gen Hx Thalassemia: No (06/07/2016 16:24:Christine Green RN) Gen Hx Congenital Heart Defect: No (06/07/2016 16:24:Christine Green RN) Gen Hx Neural Tube Defect: No (06/07/2016 16:24:Christine Green RN) Gen Hx Down's Syndrome: No (06/07/2016 16:24:Christine Green RN) Gen Hx Josue-Sachs: No (06/07/2016 16:24:Christine Green RN) Gen Hx Tristan: No (06/07/2016 16:24:Christine Green RN) Gen Hx Familial Dysautonomia: No (06/07/2016 16:24:Christine Green RN) Gen Hx Sickle Cell Disease/Trait: No (06/07/2016 16:24:Christine Green RN) Gen Hx Hemophilia/Blood Disorder: No (06/07/2016 16:24:Christine Green RN) Gen Hx Muscular Dystrophy: No (06/07/2016 16:24:Christine Green RN) Gen Hx Cystic Fibrosis: No (06/07/2016 16:24:Christine Green RN) Gen Hx Huntingtons Chorea: No (06/07/2016 16:24:Christine Green RN) Gen Hx Mental Retardation/Autism: No (06/07/2016 16:24:Christine Green RN) Gen Hx Tested for Fragile X: No (06/07/2016 16:24:Christine Green RN) Gen Hx Other Inher/Chromosomal: No (06/07/2016 16:24:Christine Green RN) Gen Hx Maternal Metabolic DO: No (06/07/2016 16:24:Christine Green RN) Gen Hx Pt Father or FOB Defect: No (06/07/2016 16:24:Christine Green RN) Gen Hx Other Genetic History: No (06/07/2016 16:24:Christine Green RN) Gen Hx Drugs/Meds since LMP: No (06/07/2016 16:24:Christine Green RN)
--- NOTE | 2016-06-19 18:15 | L&D Care Plan ---
LD CARE PLANS Datetime Report Generated by CPN: 06/19/2016 18:15 Datetime: 06/18/2016 15:37 Pain State: Actual (Christine Green RN) Related To: Labor and Delivery Process (Christine Green RN) Goal(s): Patients Pain will be Assessed and Managed; Patient will Verbalize Adequate Relief of Pain or the Ability to [place] with Current Pain (Christine Green RN) Interventions: Assess Pain Severity on Scale of 0 (None) to 5 (Severe); Assess Type, Location and Intensity of Pain Each Time Client Reports Discomfort and Notify Provider if Unusal Pain Develops; Encourage Proper Breathing and Relaxation Techniques; Offer Alternatives Such as Repositioning, Calm Environment, Massages, Diversional Activities, Ice Pack, Splinting, and Ambulation; Administer Analgesics as Ordered; Assist with Epidural Placement as Appropriate; Evaluate Therapeutic Effectiveness of Medication and Treatments (Christine Green RN) Outcome: Patient will Report Absence or Relief of Pain Consistent with Established Pain Goal (Christine Green RN) Status: Ongoing (Christine Green RN) Outcome: Patient will have a Decrease in Signs and Symptoms of Discomfort (Christine Green RN) Status: Ongoing (Christine Green RN) Outcome: Pain will be Controlled During Procedures (Christine Green RN) Status: Ongoing (Christine Green RN) Anxiety State: Risk For (Christine Green RN) Related To: Labor and Delivery Process; Medical Interventions; Significant Life Event (Christine Green RN) Goal(s): Patient will have Decreased Anxiety and be able to Function at Acceptable Levels (Christine Green RN) Interventions: Assess Verbal and Nonverbal Behavioral Indicators of Anxiety; Assist Patient to Identify and Verbalize Symptoms of Anxiety; Identify and Demonstrate Techniques to Control Anxiety; Assist Patient with Coping Mechanisms to Manage Anxiety; Provide Theraputic Touch for the Patient; Explain to Patient, Using a Calm Reassuring Approach and Nonmedical Terms, All Activities, Procedures, and Concerns; Instruct Patient and Family about Post Discharge Care, Limitations, Symptoms to Report and Resources Available (Christine Green RN) Outcome: Patient will Identify, Verbalize and Demonstrate Techniques to Control Anxiety (Christine Green RN) Status: Ongoing (Christine Green RN) Outcome: Patient's Posture, Facial Expressions, Gestures and Activity Level will Reflect Decreased Anxiety (Christine Green RN) Status: Ongoing (Christine Green RN) Outcome: Patient will Verbalize a Sense of Control and/or Acceptance of the Situation (Christine Green RN) Status: Ongoing (Christine Green RN) Outcome: Patient will Identify and Utilize Support Person (Christine Green RN) Status: Ongoing (Christine Green RN) Knowledge Deficit State: Not Applicable (Christine Green RN) Infection State: Risk For (Christine Green RN) Related To: Invasive Procedures (Christine Green RN) Goal(s): The Patient will be Free of Infection, Vital Signs Stable and Lab Work within Normal Parameters (Christine Green RN) Interventions: Instruct and Reinforce Proper Handwashing, Hygiene, and Care Techniques to Patient and Family; Monitor Vital Signs; Monitor Patient for the Following Signs of Infection: Fever, Abdominal Tenderness, Unusual Discharge; Monitor Aminiotic Fluid, Urine and Lochia for Color and Odor; Observe Wounds, Incisions and Invasive Line Sites for Redness, Drainage and Edema; Assess IV Sites per Hospital Policy; Monitor Lab and Test Results and Notify Provider of Abnormal Findings; Assess Nutritional Status and Promote Good Nutrition (Christine Green RN) Outcome: Patient will Remain Free of Infection (Christine Green RN) Status: Ongoing (Christine Green RN) Outcome: Infection will be Recognized Early to Allow for Prompt Treatment (Christine Green RN) Status: Ongoing (Christine Green RN) Outcome: Patient will have Vital Signs Within Expected Range (Christine Green RN) Status: Ongoing (Christine Green RN) Fluid Volume State: Not Applicable (Christine Green, RN) Injury State: Not Applicable (Christine Green, RN) Impaired Skin Integrity State: Risk For (Christine Green RN) Related To: Vaginal Delivery (Christine Green RN) Goal(s): Patient will Maintain Optimal Skin Integrity, Free of Breakdown, Injury or Infection (Christine Green, CATHY) Interventions: Complete Screening for Pressure Ulcer Risk and Initiate Protocol per Hospital Policy; Monitor Site of Skin Impairment for Color Changes, Redness, Swelling, Warmth, Pain or Other Signs of Infection; Encourage and Assist with Position Changes; Monitor Patient's Mobility Status; Provide Adequate Nutrition and Fluids; Teach Patient Appropriate Hygienic Care; Teach Patient/Family Skin Care Management (Christine Green RN) Outcome: Patient will not have Evidence of Injury Such as Skin Breakdown, Scrapes, Cuts, or Bruising (Christine Green, RN) Status: Ongoing (Christine Green RN) Outcome: Patient will Report Any Altered Sensation or Pain at Site of Skin Impairment (Christine Green, RN) Status: Ongoing (Christine Green, RN) Outcome: Patients Incisions and Wounds will be without Signs or Symptoms of Infection (Christine Green, RN) Status: Ongoing (Christine Green, RN) Outcome: Patient will Demonstrate Understanding of Plan to Heal Skin and Prevent Reinjury and Verbalize Risk Factors (Christine Green RN) Status: Ongoing (Christine Green, CATHY) Parenting Impaired State: Not Applicable (Christine Vitrano, RN) Grieving State: Not Applicable (Christine Vitrano, RN) Additional Care Plan State: Not Applicable (Christine Vitrano, RN) Datetime: 06/18/2016 15:36 Pain State: Actual (Christine Green RN) Related To: Labor and Delivery Process (Christine Green RN) Goal(s): Patients Pain will be Assessed and Managed; Patient will Verbalize Adequate Relief of Pain or the Ability to [place] with Current Pain (Christine Green RN) Interventions: Assess Pain Severity on Scale of 0 (None) to 5 (Severe); Assess Type, Location and Intensity of Pain Each Time Client Reports Discomfort and Notify Provider if Unusal Pain Develops; Encourage Proper Breathing and Relaxation Techniques; Offer Alternatives Such as Repositioning, Calm Environment, Massages, Diversional Activities, Ice Pack, Splinting, and Ambulation; Administer Analgesics as Ordered; Assist with Epidural Placement as Appropriate; Evaluate Therapeutic Effectiveness of Medication and Treatments (Christine Green RN) Outcome: Patient will Report Absence or Relief of Pain Consistent with Established Pain Goal (Christine Green RN) Status: Ongoing (Christine Green RN) Outcome: Patient will have a Decrease in Signs and Symptoms of Discomfort (Christine Green RN) Status: Ongoing (Christine Green RN) Outcome: Pain will be Controlled During Procedures (Christine Green RN) Status: Ongoing (Christine Green RN) Anxiety State: Risk For (Christine Green RN) Related To: Labor and Delivery Process; Medical Interventions; Significant Life Event (Christine Green RN) Goal(s): Patient will have Decreased Anxiety and be able to Function at Acceptable Levels (Christine Green RN) Interventions: Assess Verbal and Nonverbal Behavioral Indicators of Anxiety; Assist Patient to Identify and Verbalize Symptoms of Anxiety; Identify and Demonstrate Techniques to Control Anxiety; Assist Patient with Coping Mechanisms to Manage Anxiety; Provide Theraputic Touch for the Patient; Explain to Patient, Using a Calm Reassuring Approach and Nonmedical Terms, All Activities, Procedures, and Concerns; Instruct Patient and Family about Post Discharge Care, Limitations, Symptoms to Report and Resources Available (Christine Green RN) Outcome: Patient will Identify, Verbalize and Demonstrate Techniques to Control Anxiety (Christine Green RN) Status: Ongoing (Christine Green RN) Outcome: Patient's Posture, Facial Expressions, Gestures and Activity Level will Reflect Decreased Anxiety (Christine Green RN) Status: Ongoing (Christine Green RN) Outcome: Patient will Verbalize a Sense of Control and/or Acceptance of the Situation (Christine Green RN) Status: Ongoing (Christine Green RN) Outcome: Patient will Identify and Utilize Support Person (Christine Green RN) Status: Ongoing (Christine Green RN) Knowledge Deficit State: Not Applicable (Christine Green RN) Infection State: Risk For (Christine Green RN) Related To: Invasive Procedures (Christine Green RN) Goal(s): The Patient will be Free of Infection, Vital Signs Stable and Lab Work within Normal Parameters (Christine Green RN) Interventions: Instruct and Reinforce Proper Handwashing, Hygiene, and Care Techniques to Patient and Family; Monitor Vital Signs; Monitor Patient for the Following Signs of Infection: Fever, Abdominal Tenderness, Unusual Discharge; Monitor Aminiotic Fluid, Urine and Lochia for Color and Odor; Observe Wounds, Incisions and Invasive Line Sites for Redness, Drainage and Edema; Assess IV Sites per Hospital Policy; Monitor Lab and Test Results and Notify Provider of Abnormal Findings; Assess Nutritional Status and Promote Good Nutrition (Christine Green RN) Outcome: Patient will Remain Free of Infection (Christine Green RN) Status: Ongoing (Christine Green RN) Outcome: Infection will be Recognized Early to Allow for Prompt Treatment (Christine Green RN) Status: Ongoing (Christine Green RN) Outcome: Patient will have Vital Signs Within Expected Range (Christine Green RN) Status: Ongoing (Christine Green RN) Fluid Volume State: Not Applicable (Christine Green RN) Injury State: Not Applicable (Christine Green RN) Impaired Skin Integrity State: Risk For (Christine Green RN) Related To: Vaginal Delivery (Christine Green RN) Goal(s): Patient will Maintain Optimal Skin Integrity, Free of Breakdown, Injury or Infection (Christine Green RN) Interventions: Complete Screening for Pressure Ulcer Risk and Initiate Protocol per Hospital Policy; Monitor Site of Skin Impairment for Color Changes, Redness, Swelling, Warmth, Pain or Other Signs of Infection; Encourage and Assist with Position Changes; Monitor Patient's Mobility Status; Provide Adequate Nutrition and Fluids; Teach Patient Appropriate Hygienic Care; Teach Patient/Family Skin Care Management (Christine Green RN) Outcome: Patient will not have Evidence of Injury Such as Skin Breakdown, Scrapes, Cuts, or Bruising (Christine Green RN) Status: Ongoing (Christine Green RN) Outcome: Patient will Report Any Altered Sensation or Pain at Site of Skin Impairment (Christine Green RN) Status: Ongoing (Christine Green RN) Outcome: Patients Incisions and Wounds will be without Signs or Symptoms of Infection (Christine Green RN) Status: Ongoing (Christine Green RN) Outcome: Patient will Demonstrate Understanding of Plan to Heal Skin and Prevent Reinjury and Verbalize Risk Factors (Christine Vitrano, RN) Status: Ongoing (Christine Vitrano, RN) Parenting Impaired State: Not Applicable (Christine Vitrano, RN) Grieving State: Not Applicable (Christine Vitrano, RN) Additional Care Plan State: Not Applicable (Christine Vitrano, RN)
[2016-06-19] MEDS: IBUPROFEN 800 MG TABLET PO SCH ×2 (18:45→23:01)
[2016-06-20] MEDS: OXYCODONE-ACETAMINOPHEN 5-325 MG TABLET PO PRN ×4 (05:08→23:13)
[2016-06-20] MEDS: IBUPROFEN 800 MG TABLET PO SCH ×4 (05:09→23:12)
[2016-06-20] MEDS: SIMETHICONE 80 MG TAB.CHEW PO PRN ×2 (05:10→17:27)
--- NOTE | 2016-06-20 06:00 | L&D Current Admission ---
Current Admit Datetime Report Generated by CPN: 06/20/2016 06:00 ADMISSION INFORMATION Current Admit Date/Time: 06/18/2016 16:00 (06/18/2016 16:00:KATRINA Madden) Reason for Admission: Other; Labor Check/Investigation of Chief Complaint (06/18/2016 16:00:KATRINA Madden) Chief Complaint: Other (Annotations: PT admitted from [facility] ) (06/18/2016 16:00:KATRINA Madden) Medications During : Diphenhydramine (Benedryl); Vitamin; Acetaminophen (Tylenol); Rantidine (Zantac) (06/18/2016 16:00:KATRINA Madden) Meds During -Oth: Also took antibiotic for UTI (06/18/2016 16:00:KATRINA Madden) EGA per Dates: 36.0 (06/18/2016 16:00:QS system process) Method of Arrival: Wheelchair (06/18/2016 16:00:KATRINA Madden) Admitted From: Dr. Forrest (06/18/2016 16:00:KATRINA Madden) Reason for Induction- Other: PT admitted from [facility] (06/18/2016 16:00:KATRINA Madden) Records Available: Yes (06/18/2016 16:00:KATRINA Madden) General Admission Information: Reviewed (06/18/2016 16:00:KATRINA Madden) BELONGINGS/ADVANCED DIRECTIVES Disposition of Belongings: Kept with Patient (06/18/2016 16:00:KATRINA Madden) Comments Regarding Disposition: Kept with patients layla (Jemal Alonzo) (06/18/2016 16:00:KATRINA Madden) Advance Direct for Healthcare: No, and Wants No Information (06/18/2016 16:00:KATRINA Madden) Durable Power of Building Manager: No (06/18/2016 16:00:KATRINA Madden) Living Will: No (06/18/2016 16:00:KATRINA Madden) Organ Donor: No (06/18/2016 16:00:KATRINA Madden) Pt Rights Information Given: Yes (06/18/2016 16:00:KATRINA Madden) Pt Understands Pt Rights: Yes (06/18/2016 16:00:KATRINA Madden) LEARNING ASSESSMENT Knowledge Level: Understands L_D Process (06/18/2016 16:00:Irma Hawkins RNC) Barriers to Learning: None (06/18/2016 16:00:Irma Hawkins RNC) Learning Readiness: Motivated (06/18/2016 16:00:Irma Hawkins RNC) Learns Best By: 1 to 1 Instruction; Reading; Videos; Group Discussion; Demonstration (06/18/2016 16:00:Irma Hawkins RNC) Learning Needs: Labor and Delivery Process; Pain Management; Symptoms to Report; Treatment Plan; Medication; Diagnosis; Nutrition; Equipment; Infant Care (06/18/2016 16:00:Irma Pembertone, RNC) NUTRITIONAL/FUNCTIONAL SCREENING Problem with Appetite >5 Days: No (06/18/2016 16:00:Irma Sobiance, RNC) Chew/Swallow Difficulties: No (06/18/2016 16:00:Irma Bellavance, RNC) Inappropriate Wt Gain/Loss: No (06/18/2016 16:00:Irma Belldomnce, RNC) Presence Skin Breakdown/Ulcer: No (06/18/2016 16:00:KATRINA Madden) Special Diet: No (06/18/2016 16:00:KATRINA Madden) Pt Requests Cabinet And Trim Installer Visit: Chary (06/18/2016 16:00:KATRINA Madden) Hx of Any of the Following?: N/A (06/18/2016 16:00:KATRINA Madden) New Diagnosis of: Gest Diabetes; Multiple Gestation (06/18/2016 16:00:KATRINA Madden) Requires Assist w/Ambulation: Chary (06/18/2016 16:00:KATRINA Madden) Uses Assist Device to Ambulate: Chary (06/18/2016 16:00:KATRINA Madden) Pt Requires Help w/ADL's: Chary (06/18/2016 16:00:KATRINA Madden)
--- NOTE | 2016-06-20 06:00 | L&D General Admission ---
General Admit Datetime Report Generated by CPN: 06/20/2016 06:00 INFORMATION Patient Age: 25 (05/20/2016 13:54:QS system process) EDC: 07/16/2016 00:00 (06/07/2016 16:24:Christine Green RN) : 3 (06/07/2016 16:24:Christine Green RN) Para: 1 (06/07/2016 16:24:Freya Soares RN) Term: 1 (06/07/2016 16:24:Christine Green RN) : 0 (06/07/2016 16:24:Christine Green RN) Livin (06/07/2016 16:24:Christine Green RN) Cesareans: 0 (06/07/2016 16:24:Christine Green RN) VBACs: 0 (06/07/2016 16:24:Christine Green RN) Ectopic: 0 (06/07/2016 16:24:Christine Green RN) Multiple Births: 0 (06/07/2016 16:24:Christine Green RN) Baby, Number in Womb: 2 (06/07/2016 16:24:Christine Green RN) CARE Primary Editorial Manager: [facility] (06/07/2016 16:24:Christine Green RN) Month of 1st Visit: 01/2016 (06/07/2016 16:24:Christine Green RN) Adequate Care: No (06/07/2016 16:24:Christine Green RN) Prepregnancy Weight (lb): 183 (06/07/2016 16:24:Freya Soares RN) Prepregnancy Weight (kg): 83.2 (06/07/2016 16:24:QS system process) Height (in): 63 (06/19/2016 11:36:QS system process) ALLERGIES Medication Allergy: No (06/07/2016 16:24:Christine Green RN) Medication Allergies: No Known Allergies (06/07/2016) (06/07/2016 16:22:QS system process) Latex Allergy: No Latex Allergies (06/07/2016 16:24:Christine Green RN) Food Allergies: N/A (06/07/2016 16:24:Christine Green RN) Environmental Allergies: N/A (06/07/2016 16:24:Christine Green RN) COMMUNICATION Primary Language: Iranian (06/07/2016 16:24:Christine Green RN) Medical Tx Preferred Language: Iranian (06/07/2016 16:24:Christine Green RN) Communication Barrier(s): None (06/07/2016 16:24:Christine Green RN) DEMOGRAPHICS Address: [address] [place] [address] [place] [address] (06/02/2016 21:38:QS system process) Zipcode: [address] (05/20/2016 13:54:QS system process) Home (05/20/2016 13:54:QS system process) N: [phone] (05/20/2016 13:54:QS system process) Next of Kin Name: ROBBIE SONI (05/20/2016 13:54:QS system process) Next of Kin (05/20/2016 13:54:QS system process) Next of Kin Relationship: OR (05/20/2016 13:54:QS system process) Date of : 1990 (05/20/2016 13:54:QS system process) Marital Status: Single (05/20/2016 13:54:QS system process) Sex: Female (05/20/2016 13:54:QS system process) Race: Other (05/20/2016 13:54:QS system process) Ethnicity: or (05/20/2016 13:54:QS system process) Buddhist: None (05/20/2016 13:54:QS system process) DRUG AND ALCOHOL USE Alcohol: No (06/07/2016 16:24:Christine Green RN) Cigarettes: Former Smoker. [id number] (06/07/2016 16:24:Christine Green RN) Marijuana: No (06/07/2016 16:24:Christine Green RN) Cocaine: No (06/07/2016 16:24:Christine Green RN) Other Illicit Drugs: No (06/07/2016 16:24:Christine Green RN) VACCINE HISTORY Influenza Vaccine: No (06/07/2016 16:24:Christine Green RN) Pneumococcal Vaccine: No (06/07/2016 16:24:Christine Green RN) Tetanus Vaccine: Yes (06/07/2016 16:24:Christine Green RN) Tdap Vaccine: Yes (06/07/2016 16:24:Christine Green RN) Hepatitis B Vaccine: Yes (06/07/2016 16:24:Christine Green RN) Pool Hand: [facility] (06/07/2016 16:24:KATRINA Madden) Feeding Preference: Formula (06/07/2016 16:24:Christine Green RN) Benefit of Breast Feed Discussed: Yes (06/07/2016 16:24:Christine Green RN) Circumcision: Yes (06/07/2016 16:24:Christine Green RN) Classes Attended: No (06/07/2016 16:24:Christine Green RN) Tubal Ligation: Yes (06/07/2016 16:24:Christine Green RN) Tubal Authorization Signed: Yes (06/07/2016 16:24:Christine Green RN) Consent Signed: Yes (06/07/2016 16:24:KATRINA Vasquez) Pain Management Plans: Epidural (06/07/2016 16:24:KATRINA Madden) Plans for Labor and Delivery: None (06/07/2016 16:24:KATRINA Madden) Support Person: Robbie Chavez (06/07/2016 16:24:Christine Green RN) Support Person Relationship: Significant Other (06/07/2016 16:24:Christine Green RN) Cultural/Spritual Practice: No (06/07/2016 16:24:Christine Green RN) Spir/Cult Dietary Needs: No (06/07/2016 16:24:Christine Green RN) LIVING SITUATION/DISCHARGE PLAN Living Arrangements: Apartment (06/07/2016 16:24:Christine Green RN) Adequate Access to:: Electric; Heat; Refrigeration; Plumbing/Running water; Phone; Transportation (06/07/2016 16:24:Christine Green RN) WIC Program: Yes (06/07/2016 16:24:Christine Green RN) Discharge Building Contractor Person: FOB (06/07/2016 16:24:Christine Green RN) Person to Help after Discharge: FOB (06/07/2016 16:24:Christine Green RN) Currently Using Commun Resources: Yes (06/07/2016 16:24:Christine Green RN) Specify Current Resource Used: Medicaid (06/07/2016 16:24:Christine Green RN) Outside Agency/Tool Setter Apprentice: No (06/07/2016 16:24:Christine Green RN) Car Seat for Discharge: Yes (06/07/2016 16:24:Christine Green RN) Adoption Requested: No (06/07/2016 16:24:Christine Green RN) Pt Contact w/infant Post : N/A (06/07/2016 16:24:Christine Green RN) LABS Blood Type: O Positive (06/07/2016 16:24:Freya Soares RN) Antibody Screen: negative (06/07/2016 16:24:Freya Soares RN) Hemoglobin: 9.4 L (06/19/2016 06:50:QS system process) Hematocrit: 29.5 L (06/19/2016 06:50:QS system process) MCV: 71 L (06/19/2016 06:50:QS system process) Group Beta Strep: unknown (06/07/2016 16:24:Maurizio Rome CNM) RPR/VDRL: Nonreactive (06/07/2016 16:24:Freya Soares RN) HIV Exposure Test: Positive (06/07/2016 16:24:Freya Soares RN) Hepatitis B: Negative (06/07/2016 16:24:Freya Soares RN) Rubella: Immune (06/07/2016 16:24:Freya Soares RN) Varicella: Non Susceptible (06/07/2016 16:24:Freya Soares RN) OB/PREVIOUS HISTORY Current Procedures: NST (06/07/2016 16:24:Christine Green RN) History of Previous : No (06/07/2016 16:24:Christine Green RN) History of Gestational Diabetes: Yes (06/07/2016 16:24:Christine Green RN) History of PIH: No (06/07/2016 16:24:Christine Green RN) History of Incompetent Cervix: No (06/07/2016 16:24:Christine Green RN) History of Placenta Previa/Abrup: No (06/07/2016 16:24:Christine Green RN) History of Macrosomia: No (06/07/2016 16:24:Christine Geren RN) History of IUGR: No (06/07/2016 16:24:Christine Green RN) History of Hemorrhage: No (06/07/2016 16:24:Christine Green RN) History of Loss/Stillborn: No (06/07/2016 16:24:Christine Green RN) History of : No (06/07/2016 16:24:Christine Green RN) History of D (Rh) Sensitization: No (06/07/2016 16:24:Christine Green RN) History Recurrent Loss/Stillborn: No (06/07/2016 16:24:Christine Green RN) History Depression/PP Depression: Yes (06/07/2016 16:24:Christine Green RN) History of Uterine Anomaly/NICKY: No (06/07/2016 16:24:Christine Green RN) History of Infertility: No (06/07/2016 16:24:Christine Green RN) History of ART Treatment: No (06/07/2016 16:24:Christine Green RN) History of NICKY: No (06/07/2016 16:24:Christine Green RN) Comments Obstetrical History: 2008 baby boy, 8 lb 0 oz, 3 hours labor Current: Twin A breech, Marginal cord insertion; Late PNC; GDM -Diet controlled (06/07/2016 16:24:Christine Green RN) MEDICAL HISTORY Med Hx Diabetes: Yes (06/07/2016 16:24:Christine Green RN) Diabetes Type: Gestational Diabetes (06/07/2016 16:24:Christine Green RN) Med Hx Hypertension: No (06/07/2016 16:24:Christine Green RN) Med Hx Heart Disease: No (06/07/2016 16:24:Christine Green RN) Med Hx Autoimmune Disorder: No (06/07/2016 16:24:Christine Green RN) Med Hx Kidney Disease/UTI: No (06/07/2016 16:24:Christine Green RN) Med Hx Neurologic/Epilepsy: No (06/07/2016 16:24:Christine Green RN) Med Hx Psychiatric Disorders: No (06/07/2016 16:24:Christine Green RN) Med Hx Hepatitis/Liver Disease: No (06/07/2016 16:24:Christine Green RN) Med Hx Varicosities/Phlebitis: No (06/07/2016 16:24:Christine Green RN) Med Hx Thyroid Dysfunction: No (06/07/2016 16:24:Christine Green RN) Med Hx Trauma/Violence: No (06/07/2016 16:24:Christine Green RN) Med Hx Blood Transfusion: No (06/07/2016 16:24:Christine Green RN) Med Hx Pulmonary (Asthma,TB): No (06/07/2016 16:24:Christine Green RN) Med Hx Breast: No (06/07/2016 16:24:Christine Green RN) Med Hx STILL RUNNER Surgery: No (06/07/2016 16:24:Christine Green RN) Med Hx Hospitalization/Surgery: No (06/07/2016 16:24:Christine Green RN) Med Hx Anesthetic Complications: No (06/07/2016 16:24:Christine Green RN) Med Hx Abnormal Pap Smear: No (06/07/2016 16:24:Christine Green RN) Other Medical Diseases: Yes (06/07/2016 16:24:Christine Green RN) Med Hx Significant Family Hx: No (06/07/2016 16:24:Christine Green RN) Details of Med/Surg Hx: GDM: Diet controlled Depression: History of depression (06/07/2016 16:24:Christine Green RN) INFECTIOUS HISTORY Inf Hx Gonorrhea: No (06/07/2016 16:24:Christine Green RN) Inf Hx Chlamydia: No (06/07/2016 16:24:Christine Green RN) Inf Hx Syphilis: No (06/07/2016 16:24:Christine Green RN) Inf Hx HIV/AIDS: No (06/07/2016 16:24:Christine Green RN) Inf Hx Human Papilloma Virus: No (06/07/2016 16:24:Christine Green RN) Inf 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 (06/07/2016 16:24:Christine Green RN) Inf Hx Tuberculosis/Exposure: No (06/07/2016 16:24:Christine Green RN) Inf Hx Hepatitis B,C: No (06/07/2016 16:24:Christine Green RN) Inf Hx Rash or Viral Illness: No (06/07/2016 16:24:Christine Green RN) Details of Infectious Hx: HSV: Diagnosed 2013 (06/07/2016 16:24:Christine Green RN) GENETIC HISTORY Gen Hx Age >=35 at BOB: No (06/07/2016 16:24:Christine Green RN) Gen Hx Thalassemia: No (06/07/2016 16:24:Christine Green RN) Gen Hx Congenital Heart Defect: No (06/07/2016 16:24:Christine Green RN) Gen Hx Neural Tube Defect: No (06/07/2016 16:24:Christine Green RN) Gen Hx Down's Syndrome: No (06/07/2016 16:24:Christine Green RN) Gen Hx Josue-Sachs: No (06/07/2016 16:24:Christine Green RN) Gen Hx Tristan: No (06/07/2016 16:24:Christine Green RN) Gen Hx Familial Dysautonomia: No (06/07/2016 16:24:Christine Green RN) Gen Hx Sickle Cell Disease/Trait: No (06/07/2016 16:24:hCristine Green RN) Gen Hx Hemophilia/Blood Disorder: No (06/07/2016 16:24:Christine Green RN) Gen Hx Muscular Dystrophy: No (06/07/2016 16:24:Christine Green RN) Gen Hx Cystic Fibrosis: No (06/07/2016 16:24:Christine Green RN) Gen Hx Huntingtons Chorea: No (06/07/2016 16:24:Christine Green RN) Gen Hx Mental Retardation/Autism: No (06/07/2016 16:24:Christine Green RN) Gen Hx Tested for Fragile X: No (06/07/2016 16:24:Christine Green RN) Gen Hx Other Inher/Chromosomal: No (06/07/2016 16:24:Christine Green RN) Gen Hx Maternal Metabolic DO: No (06/07/2016 16:24:Christine Green RN) Gen Hx Pt Father or FOB Defect: No (06/07/2016 16:24:Christine Green RN) Gen Hx Other Genetic History: No (06/07/2016 16:24:Christine Green RN) Gen Hx Drugs/Meds since LMP: No (06/07/2016 16:24:Christine Green RN)
[2016-06-20 06:52] LABS: ABSOLUTE BASOPHILS # (AUTO) 0.1 10^3/uL (0.0-0.2); ABSOLUTE EOSINOPHILS # (AUTO) 0.1 10^3/uL (0.0-0.6); ABSOLUTE LYMPHOCYTES (AUTO) 3.2 10^3/uL (0.5-4.7); ABSOLUTE NEUT (AUTO) 7.8 10^3/uL (1.7-8.2); BASOPHILS % (AUTO) 0.4 % (0-2); EOSINOPHILS % (AUTO) 0.4 % (0-6); HEMATOCRIT 26.5 % (36.0-47.0); HEMOGLOBIN 8.5 g/dL (12.0-15.5); LYMPHOCYTES % (AUTO) 26.2 % (13-45); MEAN CORPUSCULAR HEMOGLOBIN 22.7 pg (27.0-33.4); MEAN CORPUSCULAR HGB CONC 31.9 g/dL (32.0-36.0); MEAN CORPUSCULAR VOLUME 71 fl (80-97); RED BLOOD COUNT 3.73 10^6/uL (3.72-5.28); RED CELL DISTRIBUTION WIDTH 18.1 % (11.5-14.0)
--- NOTE | 2016-06-20 08:46 | PDOC PROGRESS REPORT ---
Subjective-OB Subjective: Post Delivery Day: 25 year old. Denies any needs at this time Physical Exam (OB) Vital Signs: Temp Pulse Resp BP Pulse Ox 97.4 F 78 20 124/71 99 06/20/16 07:38 06/20/16 07:38 06/20/16 07:38 06/20/16 07:38 06/20/16 07:38 Intake & Output 06/19/16 06/20/16 06/21/16 06:59 06:59 06:59 Intake Total 2900 Output Total 2400 1100 Balance 500 -1100 Weight 96.615 kg - Dressing Removed: Yes Incision: Well Approximated Closure Type: Simpson - Lochia Lochia Amount: Small 10-25 ml Lochia Color: Rubra/Red - Abdomen Description: Soft Hernia Present: No Bowel Sounds: Normoactive Flatus Presence: Present Stool: No Fundal Description: Firm, Midline Fundal Height: u/u - u/2 Objective-Diagnostic Laboratory: 06/20/16 06:20 06/20/16 06:20 WBC 12.0 H RBC 3.73 Hgb 8.5 L Hct 26.5 L MCV 71 L MCH 22.7 L MCHC 31.9 L RDW 18.1 H Plt Count 225 Seg Neutrophils % 65.0 Lymphocytes % 26.2 Monocytes % 8.0 Eosinophils % 0.4 Basophils % 0.4 Absolute Neutrophils 7.8 Absolute Lymphocytes 3.2 Absolute Monocytes 1.0 Absolute Eosinophils 0.1 Absolute Basophils 0.1 Assessment and Plan(PN) - Time Spent with Patient Medications reviewed and adjusted accordingly: Yes - Disposition Anticipated Discharge: Home
[2016-06-20] MEDS: DOCUSATE SODIUM 100 MG CAPSULE PO SCH ×2 (09:48→17:27)
[2016-06-20] MEDS: PRENATAL VITAMIN W-O CA NO5/FE FUMARATE/FA CAPSULE PO SCH (09:48)
[2016-06-21] MEDS: IBUPROFEN 800 MG TABLET PO SCH ×3 (05:10→17:24)
[2016-06-21] MEDS: OXYCODONE-ACETAMINOPHEN 5-325 MG TABLET PO PRN (06:39)
[2016-06-21 09:00] VITALS: BP 134/71
[2016-06-21] MEDS: DOCUSATE SODIUM 100 MG CAPSULE PO SCH ×2 (09:51→17:24)
[2016-06-21] MEDS: PRENATAL VITAMIN W-O CA NO5/FE FUMARATE/FA CAPSULE PO SCH (09:51)
--- NOTE | 2016-06-21 10:24 | PDOC DISCHARGE SUMMARY ---
Final Diagnosis Discharge Date: 06/21/16 - Final Diagnosis (1) Acute blood loss anemia Is this a current diagnosis for this admission?: Yes (2) GDM (gestational diabetes mellitus) Is this a current diagnosis for this admission?: Yes (3) Twin delivered vaginally Is this a current diagnosis for this admission?: Yes (4) Twin, delivered by Is this a current diagnosis for this admission?: Yes Discharge Data - Discharge Medication Home Medications: Vit/Iron Fumarate/FA [ Tablet] 1 tab PO DAILY 06/07/16 Ranitidine HCl [Zantac 150 mg Tablet] 1 tab PO DAILY 06/07/16 Docusate Sodium [Colace 100 mg Capsule] 100 mg PO BID #60 capsule 06/21/16 Ibuprofen [Motrin 800 mg Tablet] 800 mg PO Q6 #60 tablet 06/21/16 Oxycodone HCl/Acetaminophen [Percocet 5-325 mg Tablet] 2 tab PO Q4HP PRN #30 tablet 06/21/16 Gestational Age: 36.0 Reason(s) for Admission: Onset of Labor, Gestional Diabetes, Group B Strep Positive - GBS UNKNOWN Procedures: NST Intrapartum Procedure(s): Spontaneous Vaginal Delivery, : Low Cervical, Transverse - Leota Data Baby 1 Male at 1 minute: 9 at 5 minutes: 9 Weight: 2455 kg Home with Mother: Yes Complications: Yes - Baby 1 Female at 1 minute: 8 at 5 minutes: 9 Weight: 2440 kg Home with Mother: No Complications: No - , weight loss - Diagnosis Test Laboratory: Temp Pulse Resp BP Pulse Ox 97.8 F 81 18 134/71 H 100 06/21/16 09:00 06/21/16 09:00 06/21/16 09:00 06/21/16 09:00 06/21/16 09:00 06/18/16 06/18/16 06/19/16 15:25 16:06 06:50 RBC 4.29 4.18 Hgb 9.9 L 9.4 L Hct 30.7 L 29.5 L Urine Opiates Screen NEGATIVE 06/20/16 06:20 RBC 3.73 Hgb 8.5 L Hct 26.5 L Urine Opiates Screen - Discharge information/Instructions Discharge Activity: Activity As Tolerated, Balance Activity w/Rest, No Driving, No Lifting Over 10 Pounds, No Lifting/Push/Pulling, Pelvic Rest, Slowly Increase Activity, No tub bath Discharge Diet: Regular Disposition: HOME, SELF-CARE Follow up with: [facility] in: 1, 10
--- NOTE | 2016-06-24 13:45 | Delivery Summary ---
Del Sum A-C Datetime Report Generated by CPN: 06/24/2016 13:45 ADMISSION DATA Chief Complaint: Uterine Contractions Indication for Induction Comment: twin gestation di/di Admission Impression: , Intrauterine Admit Provider Comments: 25 yo admitted for advanced cervical dilatation EDC 07/16/16 unremarkable phx unknown GBS abdomen nontender FHTS reactive uterine contractions 2-3 min cervix 6-7//- Twin Gestation di/ di twins admit GBs prophylaxis anticipate DELIVERY PERSONNEL Delivery Doctor:: Lana Pack MD Nurse Senior Tax Specialist Certified:: Maurizio Rome CNM Anesthesiologist:: Chetna Dinero MD REFINERY SUPERINTENDENT:: Claudia Collins CRNA Labor and Delivery Nurse:: KATRINA Madden Labor and Delivery Nurse:: Ángel Watson RN Neonatal Nurse Practitioner:: JONAH Garcia Nursery Nurse:: Marisa Rosario RN Nursery Nurse:: Kelly Springer RN Cmo/PRESIDENT SALES AND MARKETING: [facility] Cmo/PRESIDENT SALES AND MARKETING: [facility] MATERNAL INFORMATION Delivery Anesthesia: Epidural Medications After Delivery: Pitocin Bolus-Please Comment; Pitocin Drip 20 Units/1000ml NSS Estimated Blood Loss (ml): 500 Maternal Complications: Precipitous Labor (<3hrs) Provider Comments: pt with increased urge to push in OR for twin delivery Dr. Pack present and at bedside delivery of viable male bulb suctioned on perineum loose nuchal easily reduced KATTY compound left hand cord clamped cut by FOB infant handed to nursery nurse cord A clamped delivery of baby B by Dr. Pack for adan breech LABOR SUMMARY EDC: 07/16/2016 00:00 No. Babies in Womb: 2 Attempted: No Labor Anesthesia: Epidural LABOR INFORMATION Reason for Induction: Not Applicable Onset of Labor: 06/18/2016 12:00 Complete Dilatation: 06/18/2016 17:20 Oxytocin: Augmentation Group B Beta Strep: unknown Antibiotics # of Doses: 1 Name of Antibiotic Given: PCN, Ancef Steroids Given: None Reason Steroids Not Administered: Not Applicable MEMBRANES Membranes Rupture Method: Spontaneous Rupture of Membranes: 06/17/2016 16:05 Length of Rupture (hr): 25.33 Amniotic Fluid Color: Clear Amniotic Fluid Amount: Moderate Amniotic Fluid Odor: Normal STAGES OF LABOR Stage 1 hr: 5 Stage 1 min: 20 Stage 2 hr: 0 Stage 2 min: 5 Stage 3 hr: 0 Stage 3 min: 38 Total Time in Labor hr: 6 Total Time in Labor min: 3 VAGINAL DELIVERY Episiotomy: None Laceration Type: None Laceration Repair: Not Applicable Sharps Count Correct: N/A CSECTION DELIVERY Primary Indication: Breech Presentation Secondary Indication: N/A CSection Urgency: Emergency CSection Incidence: Primary Labor: Labor Elective: Nonelective CSection Incision: Lower Uterine Transverse BABY A INFORMATION Infant Delivery Date/Time: 06/18/2016 17:25 Method of Delivery: Vaginal Born in Route : No : N/A Forceps: N/A Vacuum Extraction: N/A Shoulder Dystocia : No PRESENTATION/POSITION BABY A Presentation: Cephalic Cephalic Presentation: Vertex Vertex Position: Right Occipital Anterior Breech Presentation: N/A PLACENTA INFORMATION BABY A Placenta Delivery Time : 06/18/2016 18:03 Placenta Method of Delivery: Manual Removal Placenta Status: Delivered SCORES BABY A Heart Rate 1 min: >100 bpm Resp Effort 1 min: Good Cry Reflex Irritability 1 min: Cough or Sneeze or Pulls Away Muscle Tone 1 min: Active Motion Color 1 min: Body [place], Extremities Blue SCORE 1 MIN: 9 Heart Rate 5 min: >100 bpm Resp Effort 5 min: Good Cry Reflex Irritability 5 min: Cough or Sneeze or Pulls Away Muscle Tone 5 min: Active Motion Color 5 min: Body [place], Extremities Blue SCORE 5 MIN: 9 INFORMATION BABY A Gestational Age at Delivery: 36.0 Gestational Status: Late - 34- 36.6 Weeks Infant Outcome : Liveborn Infant Condition : Stable Infant Sex: Male IDENTIFICATION BABY A Verification Date/Time: 06/18/2016 19:07 ID Band Number: [id number] Mother's Name Verified: Yes RN Verifying Infant: CATHY Mary Additional Verifying Personnel: Irma Hawkins RN WEIGHT/LENGTH BABY A Birthweight (gm): 2455 Weight (lb): 5 Infant Weight (oz): 7 Infant Length (in): 18.50 Length (cm): 46.99 CORD INFORMATION BABY A No. Cord Vessels: 3 Nuchal Cord : Around Neck x1, Loose Cord Blood Taken: Yes-For Eval (Mom's Blood Type - or O+) Suction: None ASSESSMENT BABY A Infant Complications: None Physical Findings at Delivery: Within Normal Limits Infant Respirations: Appears Normal Skin to Skin: No Application Integration Architect/ALS Called : No Care By: Naeem Rosario RN Transferred To: Nursery BABY B INFORMATION Infant Delivery Date/Time: 06/18/2016 18:02 Method of Delivery : Born in Route : No : N/A Forceps : N/A Vacuum Extraction: N/A Shoulder Dystocia : No SHOULDER DYSTOCIA BABY B Delivery Date/Time: 06/18/2016 18:02 PRESENTATION/POSITION BABY B Presentation : Breech Cephalic Position : N/A Breech Position: Adan ROM/PLACENTA INFO BABY B Rupture of Membranes: 06/18/2016 18:00 Length of Rupture (hr): 0.03 Placenta Delivery Time : 06/18/2016 18:03 Placenta Method of Delivery: Manual Removal Placental Status : Delivered SCORES BABY B Heart Rate 1 min: >100 bpm Resp Effort 1 min: Good Cry Reflex Irritability 1 min: Cough or Sneeze or Pulls Away Muscle Tone 1 min: Some Flexion of Extremities Color 1 min: Body [place], Extremities Blue Resuscitation Effort 1 min: Tactile Stimulation SCORE 1 MIN: 8 Heart Rate 5 min: >100 bpm Resp Effort 5 min: Good Cry Reflex Irritability 5 min: Cough or Sneeze or Pulls Away Muscle Tone 5 min: Active Motion Color 5 min: Body [place], Extremities Blue Resuscitation Effort 5 min: Tactile Stimulation SCORE 5 MIN: 9 INFANT INFORMATION BABY B Gestational Age at Delivery: 36.0 Gestational Status : Late - 34- 36.6 Weeks Infant Outcome : Liveborn Condition : Stable Sex : Female IDENTIFICATION BABY B Verification Date/Time: 06/18/2016 18:10 ID Band Number : [id number] Mother's Name Verified: Yes Infant RN Verifying : D Shruthi C Additional Verifying Personnel: Lavinia Watson RN WEIGHT/LENGTH BABY B Infant Birthweight (gm): 2440 Infant Weight (lb) : 5 Infant Weight (oz): 6 Length (in): 17.50 Length (cm): 44.45 CORD INFORMATION BABY B No. Cord Vessels : 3 Nuchal Cord : N/A Cord Blood Taken : Yes-For Storage (Mom's Blood Type +) Suction : None ASSESSMENT BABY B Infant Complications : None Physical Findings at Delivery: Within Normal Limits Respirations : Appears Normal Skin to Skin: No Application Integration Architect/ALS Called : No Infant Care By : Bea Head hvac commercial salesperson To: Nursery SIGNATURES Assignment: Lana Pack MD Signature: with User ID: [email or web address] : with User ID: [email or web address]
--- NOTE | 2016-06-25 06:00 | L&D General Admission ---
General Admit Datetime Report Generated by CPN: 06/25/2016 06:00 INFORMATION Patient Age: 25 (05/20/2016 13:54:QS system process) EDC: 07/16/2016 00:00 (06/07/2016 16:24:Chrsitine Green RN) : 3 (06/07/2016 16:24:Christine Green RN) Para: 1 (06/07/2016 16:24:Freya Soares RN) Term: 1 (06/07/2016 16:24:Christine Green RN) : 0 (06/07/2016 16:24:Christine Green RN) Livin (06/07/2016 16:24:Christine Green RN) Cesareans: 0 (06/07/2016 16:24:Christine Green RN) VBACs: 0 (06/07/2016 16:24:Christine Green RN) Ectopic: 0 (06/07/2016 16:24:Christine Green RN) Multiple Births: 0 (06/07/2016 16:24:Christine Green RN) Baby, Number in Womb: 2 (06/07/2016 16:24:Christine Green RN) CARE Primary Adoption Services Manager: [facility] (06/07/2016 16:24:Christine Green RN) Month of 1st Visit: 01/2016 (06/07/2016 16:24:Christine Green RN) Adequate Care: No (06/07/2016 16:24:Christine Green RN) Prepregnancy Weight (lb): 183 (06/07/2016 16:24:Freya Soares RN) Prepregnancy Weight (kg): 83.2 (06/07/2016 16:24:QS system process) Height (in): 63 (06/21/2016 10:24:QS system process) ALLERGIES Medication Allergy: No (06/07/2016 16:24:Christine Green RN) Medication Allergies: No Known Allergies (06/07/2016) (06/07/2016 16:22:QS system process) Latex Allergy: No Latex Allergies (06/07/2016 16:24:Christine Green RN) Food Allergies: N/A (06/07/2016 16:24:Christine Green RN) Environmental Allergies: N/A (06/07/2016 16:24:Christine Green RN) COMMUNICATION Primary Language: Latvian (06/07/2016 16:24:Christine Green RN) Medical Tx Preferred Language: Latvian (06/07/2016 16:24:Christine Green RN) Communication Barrier(s): None (06/07/2016 16:24:Christine Green RN) DEMOGRAPHICS Address: [address] [place] [address] [place] [address] (06/02/2016 21:38:QS system process) Zipcode: [address] (05/20/2016 13:54:QS system process) Home (05/20/2016 13:54:QS system process) N: [phone] (05/20/2016 13:54:QS system process) Next of Kin Name: ROBBIE SONI (05/20/2016 13:54:QS system process) Next of Kin (05/20/2016 13:54:QS system process) Next of Kin Relationship: OR (05/20/2016 13:54:QS system process) Date of : 1990 (05/20/2016 13:54:QS system process) Marital Status: Single (05/20/2016 13:54:QS system process) Sex: Female (05/20/2016 13:54:QS system process) Race: Other (05/20/2016 13:54:QS system process) Ethnicity: or (05/20/2016 13:54:QS system process) Denominational: None (05/20/2016 13:54:QS system process) DRUG AND ALCOHOL USE Alcohol: No (06/07/2016 16:24:Christine Green RN) Cigarettes: Former Smoker. [id number] (06/07/2016 16:24:Christine Green RN) Marijuana: No (06/07/2016 16:24:Christine Green RN) Cocaine: No (06/07/2016 16:24:Christine Green RN) Other Illicit Drugs: No (06/07/2016 16:24:Christine Green RN) VACCINE HISTORY Influenza Vaccine: No (06/07/2016 16:24:Christine Green RN) Pneumococcal Vaccine: No (06/07/2016 16:24:Christine Green RN) Tetanus Vaccine: Yes (06/07/2016 16:24:Christine Green RN) Tdap Vaccine: Yes (06/07/2016 16:24:Christine Green RN) Hepatitis B Vaccine: Yes (06/07/2016 16:24:Christine Green RN) White Sugar Supervisor: [facility] (06/07/2016 16:24:KATRINA Madden) Feeding Preference: Formula (06/07/2016 16:24:Christine Green RN) Benefit of Breast Feed Discussed: Yes (06/07/2016 16:24:Christine Green RN) Circumcision: Yes (06/07/2016 16:24:Christine Green RN) Classes Attended: No (06/07/2016 16:24:Christine Green RN) Tubal Ligation: Yes (06/07/2016 16:24:Christine Green RN) Tubal Authorization Signed: Yes (06/07/2016 16:24:Christine Green RN) Consent Signed: Yes (06/07/2016 16:24:KATRINA Vasquez) Pain Management Plans: Epidural (06/07/2016 16:24:KATRINA Madden) Plans for Labor and Delivery: None (06/07/2016 16:24:KATRINA Madden) Support Person: Robbie Chavez (06/07/2016 16:24:Christine Green RN) Support Person Relationship: Significant Other (06/07/2016 16:24:Christine Green RN) Cultural/Spritual Practice: No (06/07/2016 16:24:Christine Green RN) Spir/Cult Dietary Needs: No (06/07/2016 16:24:Christine Green RN) LIVING SITUATION/DISCHARGE PLAN Living Arrangements: Apartment (06/07/2016 16:24:Christine Green RN) Adequate Access to:: Electric; Heat; Refrigeration; Plumbing/Running water; Phone; Transportation (06/07/2016 16:24:Christine Green RN) WIC Program: Yes (06/07/2016 16:24:Christine Green RN) Discharge Director Nurses' Registry Person: FOB (06/07/2016 16:24:Christine Green RN) Person to Help after Discharge: FOB (06/07/2016 16:24:Christine Green RN) Currently Using Commun Resources: Yes (06/07/2016 16:24:Christine Green RN) Specify Current Resource Used: Medicaid (06/07/2016 16:24:Christine Green RN) Outside Agency/Aircraft Delivery Checker: No (06/07/2016 16:24:Christine Green RN) Car Seat for Discharge: Yes (06/07/2016 16:24:Christine Green RN) Adoption Requested: No (06/07/2016 16:24:Christine Green RN) Pt Contact w/infant Post : N/A (06/07/2016 16:24:Christine Green RN) LABS Blood Type: O Positive (06/07/2016 16:24:Freya Soares RN) Antibody Screen: negative (06/07/2016 16:24:Freya Soares RN) Hemoglobin: 8.5 L (06/20/2016 06:20:QS system process) Hematocrit: 26.5 L (06/20/2016 06:20:QS system process) MCV: 71 L (06/20/2016 06:20:QS system process) Group Beta Strep: unknown (06/07/2016 16:24:Maurizio Rome CNM) RPR/VDRL: Nonreactive (06/07/2016 16:24:Freya Soares RN) HIV Exposure Test: Positive (06/07/2016 16:24:Freya Soares RN) Hepatitis B: Negative (06/07/2016 16:24:Freya Soares RN) Rubella: Immune (06/07/2016 16:24:Freya Soares RN) Varicella: Non Susceptible (06/07/2016 16:24:Freya Soares RN) OB/PREVIOUS HISTORY Current Procedures: NST (06/07/2016 16:24:Christine Green RN) History of Previous : No (06/07/2016 16:24:Christine Green RN) History of Gestational Diabetes: Yes (06/07/2016 16:24:Christine Green RN) History of PIH: No (06/07/2016 16:24:Christine Green RN) History of Incompetent Cervix: No (06/07/2016 16:24:Christine Green RN) History of Placenta Previa/Abrup: No (06/07/2016 16:24:Christine Green RN) History of Macrosomia: No (06/07/2016 16:24:Christine Green RN) History of IUGR: No (06/07/2016 16:24:Christine Green RN) History of Hemorrhage: No (06/07/2016 16:24:Christine Green RN) History of Loss/Stillborn: No (06/07/2016 16:24:Christine Green RN) History of : No (06/07/2016 16:24:Christine Green RN) History of D (Rh) Sensitization: No (06/07/2016 16:24:Christine Green RN) History Recurrent Loss/Stillborn: No (06/07/2016 16:24:Christine Green RN) History Depression/PP Depression: Yes (06/07/2016 16:24:Christine Green RN) History of Uterine Anomaly/NICKY: No (06/07/2016 16:24:Christine Green RN) History of Infertility: No (06/07/2016 16:24:Christine Green RN) History of ART Treatment: No (06/07/2016 16:24:Christine Green RN) History of NICKY: No (06/07/2016 16:24:Christine Green RN) Comments Obstetrical History: 2008 baby boy, 8 lb 0 oz, 3 hours labor Current: Twin A breech, Marginal cord insertion; Late PNC; GDM -Diet controlled (06/07/2016 16:24:Christine Green RN) MEDICAL HISTORY Med Hx Diabetes: Yes (06/07/2016 16:24:Christine Green RN) Diabetes Type: Gestational Diabetes (06/07/2016 16:24:Christine Green RN) Med Hx Hypertension: No (06/07/2016 16:24:Christine Green RN) Med Hx Heart Disease: No (06/07/2016 16:24:Christine Green RN) Med Hx Autoimmune Disorder: No (06/07/2016 16:24:Christine Green RN) Med Hx Kidney Disease/UTI: No (06/07/2016 16:24:Christine Green RN) Med Hx Neurologic/Epilepsy: No (06/07/2016 16:24:Christine Green RN) Med Hx Psychiatric Disorders: No (06/07/2016 16:24:Christine Green RN) Med Hx Hepatitis/Liver Disease: No (06/07/2016 16:24:Christine Green RN) Med Hx Varicosities/Phlebitis: No (06/07/2016 16:24:Christine Green RN) Med Hx Thyroid Dysfunction: No (06/07/2016 16:24:Christine Green RN) Med Hx Trauma/Violence: No (06/07/2016 16:24:Christine Green RN) Med Hx Blood Transfusion: No (06/07/2016 16:24:Christine Green RN) Med Hx Pulmonary (Asthma,TB): No (06/07/2016 16:24:Christine Green RN) Med Hx Breast: No (06/07/2016 16:24:Christine Green RN) Med Hx CORRECTIONAL LIEUTENANT Surgery: No (06/07/2016 16:24:Christine Green RN) Med Hx Hospitalization/Surgery: No (06/07/2016 16:24:Christine Green RN) Med Hx Anesthetic Complications: No (06/07/2016 16:24:Christine Green RN) Med Hx Abnormal Pap Smear: No (06/07/2016 16:24:Christine Green RN) Other Medical Diseases: Yes (06/07/2016 16:24:Christine Green RN) Med Hx Significant Family Hx: No (06/07/2016 16:24:Christine Green RN) Details of Med/Surg Hx: GDM: Diet controlled Depression: History of depression (06/07/2016 16:24:Christine Green RN) INFECTIOUS HISTORY Inf Hx Gonorrhea: No (06/07/2016 16:24:Christine Green RN) Inf Hx Chlamydia: No (06/07/2016 16:24:Christine Green RN) Inf Hx Syphilis: No (06/07/2016 16:24:Christine Green RN) Inf Hx HIV/AIDS: No (06/07/2016 16:24:Christine Green RN) Inf Hx Human Papilloma Virus: No (06/07/2016 16:24:Christine Green RN) Inf 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 (06/07/2016 16:24:Christine Green RN) Inf Hx Tuberculosis/Exposure: No (06/07/2016 16:24:Christine Green RN) Inf Hx Hepatitis B,C: No (06/07/2016 16:24:Christine Green RN) Inf Hx Rash or Viral Illness: No (06/07/2016 16:24:Christine Green RN) Details of Infectious Hx: HSV: Diagnosed 2013 (06/07/2016 16:24:Christine Green RN) GENETIC HISTORY Gen Hx Age >=35 at BOB: No (06/07/2016 16:24:Christien Green RN) Gen Hx Thalassemia: No (06/07/2016 16:24:Christine Green RN) Gen Hx Congenital Heart Defect: No (06/07/2016 16:24:Christine Green RN) Gen Hx Neural Tube Defect: No (06/07/2016 16:24:Christine Green RN) Gen Hx Down's Syndrome: No (06/07/2016 16:24:Christine Green RN) Gen Hx Josue-Sachs: No (06/07/2016 16:24:Christine Green RN) Gen Hx Tristan: No (06/07/2016 16:24:Christine Green RN) Gen Hx Familial Dysautonomia: No (06/07/2016 16:24:Christine Green RN) Gen Hx Sickle Cell Disease/Trait: No (06/07/2016 16:24:Christine Green RN) Gen Hx Hemophilia/Blood Disorder: No (06/07/2016 16:24:Christine Green RN) Gen Hx Muscular Dystrophy: No (06/07/2016 16:24:Christine Green RN) Gen Hx Cystic Fibrosis: No (06/07/2016 16:24:Christine Green RN) Gen Hx Huntingtons Chorea: No (06/07/2016 16:24:Christine Green RN) Gen Hx Mental Retardation/Autism: No (06/07/2016 16:24:Christine Green RN) Gen Hx Tested for Fragile X: No (06/07/2016 16:24:Christine Green RN) Gen Hx Other Inher/Chromosomal: No (06/07/2016 16:24:Christine Green RN) Gen Hx Maternal Metabolic DO: No (06/07/2016 16:24:Christine Green RN) Gen Hx Pt Father or FOB Defect: No (06/07/2016 16:24:Christine Green RN) Gen Hx Other Genetic History: No (06/07/2016 16:24:Christine Green RN) Gen Hx Drugs/Meds since LMP: No (06/07/2016 16:24:Christine Green RN)
--- NOTE | 2016-06-25 06:00 | L&D Current Admission ---
Current Admit Datetime Report Generated by CPN: 06/25/2016 06:00 ADMISSION INFORMATION Current Admit Date/Time: 06/18/2016 16:00 (06/18/2016 16:00:KATRINA Madden) Reason for Admission: Other; Labor Check/Investigation of Chief Complaint (06/18/2016 16:00:KATRINA Madden) Chief Complaint: Other (Annotations: PT admitted from [facility] ) (06/18/2016 16:00:KATRINA Madden) Medications During : Diphenhydramine (Benedryl); Vitamin; Acetaminophen (Tylenol); Rantidine (Zantac) (06/18/2016 16:00:KATRINA Madden) Meds During -Oth: Also took antibiotic for UTI (06/18/2016 16:00:KATRINA Madden) EGA per Dates: 36.0 (06/18/2016 16:00:QS system process) Method of Arrival: Wheelchair (06/18/2016 16:00:KATRINA Madden) Admitted From: Dr. Forrest (06/18/2016 16:00:KATRINA Madden) Reason for Induction- Other: PT admitted from [facility] (06/18/2016 16:00:KATRINA Madden) Records Available: Yes (06/18/2016 16:00:KATRINA Madden) General Admission Information: Reviewed (06/18/2016 16:00:KATRINA Madden) BELONGINGS/ADVANCED DIRECTIVES Disposition of Belongings: Kept with Patient (06/18/2016 16:00:KATRINA Madden) Comments Regarding Disposition: Kept with patients layla (Jemal Alonzo) (06/18/2016 16:00:KATRINA Madden) Advance Direct for Healthcare: No, and Wants No Information (06/18/2016 16:00:KATRINA Madden) Durable Power of Communications Department Chairperson: No (06/18/2016 16:00:KATRINA Madden) Living Will: No (06/18/2016 16:00:KATRINA Madden) Organ Donor: No (06/18/2016 16:00:KATRINA Madden) Pt Rights Information Given: Yes (06/18/2016 16:00:KATRINA Madden) Pt Understands Pt Rights: Yes (06/18/2016 16:00:KATRINA Madden) LEARNING ASSESSMENT Knowledge Level: Understands L_D Process (06/18/2016 16:00:Irma Hawkins RNC) Barriers to Learning: None (06/18/2016 16:00:Irma Hawkins RNC) Learning Readiness: Motivated (06/18/2016 16:00:Irma Hawkins RNC) Learns Best By: 1 to 1 Instruction; Reading; Videos; Group Discussion; Demonstration (06/18/2016 16:00:Irma Hawkins RNC) Learning Needs: Labor and Delivery Process; Pain Management; Symptoms to Report; Treatment Plan; Medication; Diagnosis; Nutrition; Equipment; Infant Care (06/18/2016 16:00:Irma Pembertone, RNC) NUTRITIONAL/FUNCTIONAL SCREENING Problem with Appetite >5 Days: No (06/18/2016 16:00:Irma Sobiance, RNC) Chew/Swallow Difficulties: No (06/18/2016 16:00:Irma Bellavance, RNC) Inappropriate Wt Gain/Loss: No (06/18/2016 16:00:Irma Belldomnce, RNC) Presence Skin Breakdown/Ulcer: No (06/18/2016 16:00:KATRINA Madden) Special Diet: No (06/18/2016 16:00:KATRINA Madden) Pt Requests Vault Service Mechanic Visit: Chary (06/18/2016 16:00:KATRINA Madden) Hx of Any of the Following?: N/A (06/18/2016 16:00:KATRINA Madden) New Diagnosis of: Gest Diabetes; Multiple Gestation (06/18/2016 16:00:KATRINA Madden) Requires Assist w/Ambulation: Chary (06/18/2016 16:00:KATRINA Madden) Uses Assist Device to Ambulate: Chary (06/18/2016 16:00:KATRINA Madden) Pt Requires Help w/ADL's: Chary (06/18/2016 16:00:KATRINA Madden)
== END 2016-06-21 19:00 | disposition home or self-care (01) | DRG 765 ==
LOC: LC 14:48 → LR 15:41 → 2S 20:10
PROVIDERS: ADMIT Obstetrics & Gynecology; ATTEND Obstetrics & Gynecology
PROC: 10E0XZZ Delivery of Products of Conception, External Approach (ICD-10-PCS; principal; 2016-06-18)
PROC: 10D00Z1 Extraction of Products of Conception, Low, Open Approach (ICD-10-PCS; 2016-06-18)
DX: O24.420 Gestational diabetes mellitus in childbirth, diet controlled (principal); O60.14X1 Preterm labor third trimester with preterm delivery third trimester, fetus 1; O60.14X2 Preterm labor third trimester with preterm delivery third trimester, fetus 2; D62 Acute posthemorrhagic anemia; O30.043 Twin pregnancy, dichorionic/diamniotic, third trimester; O42.013 Preterm premature rupture of membranes, onset of labor within 24 hours of rupture, third trimester; O69.81X1 Labor and delivery complicated by cord around neck, without compression, fetus 1; O32.1XX2 Maternal care for breech presentation, fetus 2; O99.02 Anemia complicating childbirth; Z3A.36 36 weeks gestation of pregnancy; Z37.2 Twins, both liveborn
CPT/HCPCS: 1961; 36415; 80307; 81001; 85025; 85027; 86592; 86850; 86900; 86901; 88307; 94799; J0131; J0690; J1100; J1170; J1885; J2175; J2250; J2370; J2405; J2540; J2590; J3010; J3490; J7120

== ENCOUNTER → 2018-08-11 | Outpatient (CLI) | payer MEDICAID ==
[2018-08-11 21:21] LABS: CHLAM PCR NOT DETECTED (NOT DETECT); GON PCR NOT DETECTED (NOT DETECT)
== END ==
LOC: LAB 19:41
PROVIDERS: ATTEND Nurse Practitioner Acute Care
DX: R30.0 Dysuria (principal)
CPT/HCPCS: 87086; 87491; 87591

== ENCOUNTER 2019-06-11 19:52 | Emergency (ER) | payer MEDICAID ==
[2019-06-11] MEDS ORDERED: METOCLOPRAMIDE HCL 10 MG TABLET PO ONE (20:10)
--- NOTE | 2019-06-11 20:11 | ER Document Report ---
ED Medical Screen (RME) - General Chief Complaint: Abdominal Pain Stated Complaint: NAUSEA/DIZZY/ABDOMINAL PAIN Time Seen by Provider: 06/11/19 20:07 Primary Care Provider: ABIGAIL MERCEDES NP [Primary Care Provider] - Follow up as needed TRAVEL OUTSIDE OF THE [place] IN LAST 30 DAYS: No - HPI Notes: 06/11/19 20:10 Patient is a 28-year-old female with history of and tubal ligation who presents complaining of mid to upper abdominal pain and bloating for the past week. She has had nausea without vomiting. She is urinating normally and having normal bowel movements although initially she thought she was constipated but has since had some diarrhea yesterday. Denies drug allergies. No recent illness or fever. No chest pain or shortness of breath. I have treated and performed a rapid initial assessment of this patient. A comprehensive ED assessment and evaluation of the patient, analysis of test results and completion of medical decision making process will be conducted by additional ED providers. PHYSICAL EXAMINATION: GENERAL: Well-appearing, well-nourished and in no acute distress. A&Ox4. Answers questions appropriately. Abdomen: Limited exam in triage, mild tenderness to the mid abdomen/epigastric area. - Related Data Allergies/Adverse Reactions: No Known Allergies Allergy (Verified 06/07/16 16:22) Past Medical History Neurological Medical History: Reports: Hx Migraine Renal/ Medical History: Denies: Hx Peritoneal Dialysis - Immunizations Hx Diphtheria, Pertussis, Tetanus Vaccination: Yes Physical Exam - Vital signs Vitals: Temp Pulse Resp BP Pulse Ox 98.6 F 80 16 136/71 H 100 06/11/19 20:05 06/11/19 20:05 06/11/19 20:05 06/11/19 20:05 06/11/19 20:05 Course - Vital Signs Vital signs: Temp Pulse Resp BP Pulse Ox 98.6 F 80 16 136/71 H 100 06/11/19 20:05 06/11/19 20:05 06/11/19 20:05 06/11/19 20:05 06/11/19 20:05 Doctor's Discharge - Discharge Referrals: ABIGAIL MERCEDES NP [Primary Care Provider] - Follow up as needed
[2019-06-11 20:50] LABS: ABSOLUTE BASOPHILS # (AUTO) 0.1 10^3/uL (0.0-0.2); ABSOLUTE EOSINOPHILS # (AUTO) 0.1 10^3/uL (0.0-0.6); ABSOLUTE LYMPHOCYTES (AUTO) 2.5 10^3/uL (0.5-4.7); ABSOLUTE MONOCYTES (AUTO) 0.7 10^3/uL (0.1-1.4); ABSOLUTE NEUT (AUTO) 5.4 10^3/uL (1.7-8.2); BASOPHILS % (AUTO) 0.8 % (0-2); EOSINOPHILS % (AUTO) 1.7 % (0-6); HEMATOCRIT 40.3 % (36.0-47.0); HEMOGLOBIN 13.7 g/dL (12.0-15.5); LYMPHOCYTES % (AUTO) 28.1 % (13-45); MEAN CORPUSCULAR HEMOGLOBIN 28.4 pg (27.0-33.4); MEAN CORPUSCULAR HGB CONC 33.9 g/dL (32.0-36.0); MEAN CORPUSCULAR VOLUME 84 fl (80-97); MONOCYTES % (AUTO) 7.8 % (3-13); PLATELET COUNT 231 10^3/uL (150-450); RED CELL DISTRIBUTION WIDTH 13.9 % (11.5-14.0); SEGMENTED NEUTROPHILS % (AUTO) 61.6 % (42-78); TOTAL CELLS COUNTED % (AUTO) 100 %; WHITE BLOOD COUNT 8.8 10^3/uL (4.0-10.5)
[2019-06-11 20:53] LABS: APPEARANCE,URINE CLEAR; BILIRUBIN,URINE NEGATIVE (NEGATIVE); COLOR,URINE STRAW; GLUCOSE, URINE NEGATIVE (NEGATIVE); KETONES,URINE NEGATIVE (NEGATIVE); PROTEIN,URINE NEGATIVE (NEGATIVE); URINE SPECIFIC GRAVITY 1.004; UROBILINOGEN,URINE NEGATIVE mg/dL (<2.0)
[2019-06-11] MEDS ORDERED: KETOROLAC TROMETHAMINE INJ/PF 30 MG/1 ML SDV IV ONE (20:56)
[2019-06-11] MEDS ORDERED: ONDANSETRON HCL INJ/PF 4 MG/2 ML SDV IV ONE (20:56)
[2019-06-11] MEDS ORDERED: NORMAL SALINE 1000 ML 1,000 ML IV ONE (20:57)
--- NOTE | 2019-06-11 21:00 | ER Document Report ---
ED GI/ - General Chief Complaint: Abdominal Swelling Stated Complaint: NAUSEA/DIZZY/ABDOMINAL PAIN Time Seen by Provider: 06/11/19 20:07 Primary Care Provider: ABIGAIL MERCEDES NP [Primary Care Provider] - Follow up as needed Notes: Patient is a 28-year-old female that comes emergency department for chief complaint of mid to upper abdominal pain with a sensation of bloating and swelling. She states this started a week ago but is worse today. She states today she has no appetite and is occasionally nauseated. She denies vomiting, fever, dysuria, vaginal bleeding or discharge, flank pain. She states she had a bowel movement within the past day and she had a little bit of diarrhea yesterday. She has had a tubal ligation and , denies any daily medications or medical history otherwise. TRAVEL OUTSIDE OF THE [place] IN LAST 30 DAYS: No - Related Data Allergies/Adverse Reactions: No Known Allergies Allergy (Verified 06/07/16 16:22) Past Medical History - General Information source: Patient - Social History Smoking Status: Former Smoker Frequency of alcohol use: Occasional Drug Abuse: None Lives with: Family Family History: CAD, CVA, DM, Hyperlipidemia, Hypertension, Malignancy. denies: Thyroid Disfunction Patient has suicidal ideation: No Patient has homicidal ideation: No Neurological Medical History: Reports: Hx Migraine Renal/ Medical History: Denies: Hx Peritoneal Dialysis Past Surgical History: Reports: Hx Section, Hx Tubal Ligation - Immunizations Hx Diphtheria, Pertussis, Tetanus Vaccination: Yes Review of Systems - Review of Systems Constitutional: No symptoms reported EENT: No symptoms reported Cardiovascular: No symptoms reported Respiratory: No symptoms reported Gastrointestinal: See HPI Genitourinary: No symptoms reported Female Genitourinary: No symptoms reported Musculoskeletal: No symptoms reported Skin: No symptoms reported Hematologic/Lymphatic: No symptoms reported Neurological/Psychological: No symptoms reported Physical Exam - Vital signs Vitals: Temp Pulse Resp BP Pulse Ox 98.6 F 80 16 136/71 H 100 06/11/19 20:05 06/11/19 20:05 06/11/19 20:05 06/11/19 20:05 06/11/19 20:05 - Notes Notes: GENERAL: Alert, interacts well. No acute distress. HEAD: Normocephalic, atraumatic. EYES: Pupils equal, round, and reactive to light. Extraocular movements intact. ENT: Oral mucosa moist, tongue midline. Oropharynx unremarkable. Airway patent. LUNGS: Clear to auscultation bilaterally, no wheezes, rales, or rhonchi. No respiratory distress. HEART: Regular rate and rhythm. No murmur ABDOMEN: Soft, non-tender. Non-distended. Bowel sounds present in all 4 quadrants. GENITOURINARY: Deferred EXTREMITIES: Moves all 4 extremities spontaneously. No edema, normal radial and dorsalis pedis pulses bilaterally. No cyanosis. BACK: no cervical, thoracic, lumbar midline tenderness. No saddle anesthesia, normal distal neurovascular exam. NEUROLOGICAL: Alert and oriented x3. Normal speech. Cranial nerves II through XII grossly intact. PSYCH: Normal affect, normal mood. SKIN: Warm, dry, normal turgor. No rashes or lesions noted. Course - Re-evaluation Re-evalutation: Patient is smiling and well-appearing, playing on her phone. She has a soft benign abdomen. Symptoms have been going on progressively for some time with bloating and swelling along with intermittent difficulty with her bowels. CBC, chemistry, urinalysis completely unremarkable. test negative. KUB shows no concerning acute findings but does show retained stool per my read. I suspect symptoms are secondary to her bowel with a constipation component. Very low suspicion of acute abdomen based on her evaluation and work-up. Patient was given IV fluids along with symptom management. I discussed her details at length, decision was made to treat her with a bowel cleanse and for her symptoms. Discussed details, discussed return precautions. Patient states appreciation and agreement. Stable and well-appearing at time of discharge. - Vital Signs Vital signs: Temp Pulse Resp BP Pulse Ox 98.1 F 58 L 18 136/72 H 98 06/11/19 22:50 06/11/19 22:50 06/11/19 22:50 06/11/19 22:50 06/11/19 22:50 - Laboratory Result Diagrams: 06/11/19 20:30 06/11/19 20:30 Discharge - Discharge Clinical Impression: Abdominal pain Qualifiers: Abdominal location: generalized Qualified Code(s): R10.84 - Generalized abdominal pain Disposition: HOME, SELF-CARE Additional Instructions: Your laboratory tests are normal. Based on your x-ray, testing, exam I suspect your pain is coming from her bowel. You do have retained stool and I think you need to clear your bowels for your symptoms to resolve. I recommend that you drink 1/4 to 1/2 of the magnesium citrate, then if after several hours you do not have bowel movement results drink another 1/4 to half. You may need to take the colace stool softener for the next 2-4 days as well as prescribed. Take bentyl for cramping, zofran for nausea. Improve your diet - increased vegetables, fruits, fiber, and fluids are very helpful to clear your bowels. Follow-up with primary care. Come back if you are worse including vomiting, severe worsening pain, fever, or any other concerning symptoms. Prescriptions: Dicyclomine HCl [Bentyl 20 mg Tablet] 20 mg PO QID PRN #20 tablet PRN Reason: Docusate Sodium [Colace 100 mg Capsule] 100 mg PO ASDIR PRN #30 capsule PRN Reason: Ondansetron [Zofran Odt 4 mg Tablet] 1 - 2 tab PO Q4H PRN #15 tab.rapdis PRN Reason: For Nausea/Vomiting Referrals: ABIGAIL MERCEDES, MILLWRIGHT SUPERVISOR [Primary Care Provider] - Follow up as needed
[2019-06-11 21:19] LABS: ALBUMIN 3.9 g/dL (3.5-5.0); ALKALINE PHOSPHATASE 54 U/L (38-126); ANION GAP 6 (5-19); ASPARTATE AMINO TRANSFERASE 25 U/L (14-36); BILIRUBIN,TOTAL 0.3 mg/dL (0.2-1.3); BLOOD UREA NITROGEN 7 mg/dL (7-20); CALCIUM 8.5 mg/dL (8.4-10.2); CARBON DIOXIDE 26 mmol/L (22-30); CHLORIDE 105 mmol/L (98-107); GLUCOSE 88 mg/dL (75-110); POTASSIUM 3.7 mmol/L (3.6-5.0); TOTAL PROTEIN 6.5 g/dL (6.3-8.2)
--- NOTE | 2019-06-11 21:49 | RADIOLOGY REPORT (SQ) ---
ABDOMINAL RADIOGRAPHS: 06/11/2019 8:46 PM CARDIOVASCULAR SPECIALIST COMPARISON: None available TECHNIQUE: Two supine radiographs of the abdomen were obtained. HISTORY: 28-year old with abdominal pain. FINDINGS: The visualized bowel gas pattern is nonspecific and nonobstructive. No abnormal intraabdominal calcifications are seen. There are no findings to suggest organomegaly. The visualized lung bases appear clear. There are changes of bilateral tubal ligation. There is a radiopaque density seen over the mid chest which could be external to the patient. IMPRESSION: The bowel gas pattern is nonobstructive and nonspecific.
[2019-06-11] MEDS ORDERED: MAGNESIUM CITRATE 296 ML BOTTLE PO ONE (21:57)
[2019-06-11 22:52] VITALS: BP 136/72
== END 2019-06-11 22:51 | disposition home or self-care (01) ==
LOC: ER 19:52
DX: K59.00 Constipation, unspecified (principal); R10.84 Generalized abdominal pain; R63.0 Anorexia; R11.0 Nausea; R19.7 Diarrhea, unspecified; Z98.51 Tubal ligation status; Z87.891 Personal history of nicotine dependence
CPT/HCPCS: 36415; 83690; 85025; 81025; 80053; 81001; 74018; J3490; J1885; J2405; J7030; 96374; 96375; 99284

== ENCOUNTER 2019-08-07 19:10 | Emergency (ER) | payer MEDICAID ==
--- NOTE | 2019-08-07 19:44 | ER Document Report ---
ED Medical Screen (RME) - General Chief Complaint: Dizziness Stated Complaint: NAUSEA, SORE THROAT, FAINT Primary Care Provider: ABIGAIL MERCEDES NP [Primary Care Provider] - Follow up as needed Notes: Patient is a 28-year-old female with a past medical history of "prediabetes" who presents the emergency department the chief complaint of feeling dizzy, faint and having episodes of severe tinnitus. She states this began a couple days ago. She states today when leaving the store she noticed her left thumb and index finger were swollen. She states they have since resolved but given the combination of symptoms she was concerned so she elected to come for evaluation. She also adds that she has had some pressure in the right upper teeth and that there is a swollen tender lymph node on the right submandibular area. She admits to some associated nausea. States her last period was last week and was normal. Denies any other pain, complaints or concerns. I have treated and performed a rapid initial assessment of this patient. A comprehensive ED assessment and evaluation of the patient, analysis of test results and completion of medical decision making process will be conducted by additional ED providers. PHYSICAL EXAMINATION: GENERAL: Well-appearing, well-nourished and in no acute distress. A&Ox4. Answers questions appropriately. TRAVEL OUTSIDE OF THE [place] IN LAST 30 DAYS: No - Related Data Allergies/Adverse Reactions: No Known Allergies Allergy (Verified 06/07/16 16:22) Past Medical History Neurological Medical History: Reports: Hx Migraine Renal/ Medical History: Denies: Hx Peritoneal Dialysis Past Surgical History: Reports: Hx Section, Hx Tubal Ligation - Immunizations Hx Diphtheria, Pertussis, Tetanus Vaccination: Yes Physical Exam - Vital signs Vitals: Temp Pulse Resp BP Pulse Ox 98.6 F 77 18 145/87 H 100 08/07/19 19:12 08/07/19 19:12 08/07/19 19:12 08/07/19 19:12 08/07/19 19:12 Course - Vital Signs Vital signs: Temp Pulse Resp BP Pulse Ox 98.6 F 77 18 145/87 H 100 08/07/19 19:12 08/07/19 19:12 08/07/19 19:12 08/07/19 19:12 08/07/19 19:12 Doctor's Discharge - Discharge Referrals: MERCEDES,ABIGAIL, EMERGENCY MEDICAL TECHNICIAN [Primary Care Provider] - Follow up as needed
[2019-08-07 20:16] LABS: ABSOLUTE BASOPHILS # (AUTO) 0.1 10^3/uL (0.0-0.2); ABSOLUTE EOSINOPHILS # (AUTO) 0.1 10^3/uL (0.0-0.6); ABSOLUTE LYMPHOCYTES (AUTO) 2.2 10^3/uL (0.5-4.7); ABSOLUTE MONOCYTES (AUTO) 0.6 10^3/uL (0.1-1.4); ABSOLUTE NEUT (AUTO) 3.9 10^3/uL (1.7-8.2); BASOPHILS % (AUTO) 1.2 % (0-2); EOSINOPHILS % (AUTO) 1.9 % (0-6); HEMATOCRIT 36.9 % (36.0-47.0); HEMOGLOBIN 12.9 g/dL (12.0-15.5); LYMPHOCYTES % (AUTO) 31.8 % (13-45); MEAN CORPUSCULAR HEMOGLOBIN 29.4 pg (27.0-33.4); MEAN CORPUSCULAR HGB CONC 35.1 g/dL (32.0-36.0); MEAN CORPUSCULAR VOLUME 84 fl (80-97); MONOCYTES % (AUTO) 9.2 % (3-13); PLATELET COUNT 209 10^3/uL (150-450); RED BLOOD COUNT 4.41 10^6/uL (3.72-5.28); RED CELL DISTRIBUTION WIDTH 13.7 % (11.5-14.0); SEGMENTED NEUTROPHILS % (AUTO) 55.9 % (42-78); TOTAL CELLS COUNTED % (AUTO) 100 %
[2019-08-07 20:28] LABS: APPEARANCE,URINE CLEAR; BILIRUBIN,URINE NEGATIVE (NEGATIVE); COLOR,URINE YELLOW; GLUCOSE, URINE NEGATIVE (NEGATIVE); KETONES,URINE NEGATIVE (NEGATIVE); PROTEIN,URINE NEGATIVE (NEGATIVE); UROBILINOGEN,URINE NEGATIVE mg/dL (<2.0)
[2019-08-07 20:41] LABS: ALBUMIN 4.7 g/dL (3.5-5.0); ALKALINE PHOSPHATASE 61 U/L (38-126); ANION GAP 6 (5-19); ASPARTATE AMINO TRANSFERASE 24 U/L (14-36); BILIRUBIN,TOTAL 0.3 mg/dL (0.2-1.3); BLOOD UREA NITROGEN 8 mg/dL (7-20); CALCIUM 9.3 mg/dL (8.4-10.2); CARBON DIOXIDE 28 mmol/L (22-30); CHLORIDE 105 mmol/L (98-107); GLUCOSE 87 mg/dL (75-110); POTASSIUM 3.8 mmol/L (3.6-5.0); TOTAL PROTEIN 7.8 g/dL (6.3-8.2)
--- NOTE | 2019-08-07 21:42 | ER Document Report ---
ED General - General Chief Complaint: Dizziness Stated Complaint: NAUSEA, SORE THROAT, FAINT Time Seen by Provider: 08/07/19 21:09 Primary Care Provider: ABIGAIL MERCEDES NP [Primary Care Provider] - Follow up as needed Mode of Arrival: Ambulatory Information source: Patient Notes: 28-year-old female arrives with chief complaint of having acute onset of left pointer and left thumb edema and 24 hours of ringing in her ears and frontal cephalgia. Patient has a history of allergies to pollen but she reports she usually gets rhinorrhea and periorbital edema with this. She denies any periorbital edema. Her had to apply cold compresses to her face y esterday because of the severe dizziness after having ringing in her ears. Also for 1 week she been removing tonsillar stones from her bilateral tonsil area. 3 days ago she broke out in a herpetic lesion to her right lower lip approximately 1 cm in diameter. She denies any trauma or spousal abuse or drug abuse or alcohol abuse. Patient attempted to walk to [facility] today and had severe dizziness. She reports for the last 7 years she has had acute pains in her legs and arms. She denies any history of multiple sclerosis or pulmonary emboli or DVTs in the family. TRAVEL OUTSIDE OF THE [place] IN LAST 30 DAYS: No - HPI Onset: Yesterday Onset/Duration: Sudden, Persistent, Worse Quality of pain: Fullness Severity: Mild Pain Level: 1 Associated symptoms: Earache, Headache Exacerbated by: Denies Relieved by: Denies Similar symptoms previously: Yes Recently seen / treated by doctor: No - Related Data Allergies/Adverse Reactions: No Known Allergies Allergy (Verified 06/07/16 16:22) Past Medical History - General Information source: Patient - Social History Smoking Status: Never Smoker Cigarette use (# per day): No Chew tobacco use (# tins/day): No Smoking Education Provided: No Frequency of alcohol use: None Drug Abuse: None Lives with: Alone Family History: CAD, CVA, DM, Hyperlipidemia, Hypertension, Malignancy. denies: Thyroid Disfunction Patient has suicidal ideation: No Patient has homicidal ideation: No Neurological Medical History: Reports: Hx Migraine Renal/ Medical History: Denies: Hx Peritoneal Dialysis Past Surgical History: Reports: Hx Section, Hx Tubal Ligation - Immunizations Hx Diphtheria, Pertussis, Tetanus Vaccination: Yes Review of Systems - Review of Systems Constitutional: See HPI, Weakness, Other - Severe dizziness and hearing with ringing bilaterally EENT: No symptoms reported, Other - Herpetic lower lip lesion Cardiovascular: No symptoms reported Respiratory: No symptoms reported Gastrointestinal: No symptoms reported Genitourinary: No symptoms reported Female Genitourinary: No symptoms reported Musculoskeletal: No symptoms reported Skin: No symptoms reported Hematologic/Lymphatic: No symptoms reported Neurological/Psychological: See HPI, Numbness, Tingling, Other - Swelling of her left pointer and thumb; patient took a picture of this many hours ago prior to arrival but upon arrival with the edema had resolved. Physical Exam - Vital signs Vitals: Temp Pulse Resp BP Pulse Ox 98.6 F 77 18 145/87 H 100 08/07/19 19:12 08/07/19 19:12 08/07/19 19:12 08/07/19 19:12 08/07/19 19:12 Interpretation: Tachycardic - General General appearance: Appears well, Anxious - HEENT Head: Normocephalic, Atraumatic Eyes: Normal Pupils: PERRL Visual villanueva normal: Yes Ears: Normal External canal: Normal Tympanic membrane: Serous effusion - jon Sinus: Frontal, Tenderness Mouth/Lips: Other - Lower lip herpetic lesion around 1 cm diameter right sided Mucous membranes: Normal Pharynx: Normal Neck: Normal - Respiratory Respiratory status: No respiratory distress Chest status: Nontender Breath sounds: Normal Chest palpation: Normal - Cardiovascular Rhythm: Regular Heart sounds: Normal auscultation Murmur: No - Abdominal Inspection: Normal Distension: No distension Bowel sounds: Normal Tenderness: Nontender Organomegaly: No organomegaly - Back Back: Normal, Nontender - Extremities General upper extremity: Normal inspection General lower extremity: Normal inspection - Neurological Neuro grossly intact: Yes Cognition: Normal Orientation: AAOx4 [place] Coma Scale Eye Opening: Spontaneous [place] Coma Scale Verbal: Oriented [place] Coma Scale Motor: Obeys Commands [place] Coma Scale Total: 15 Speech: Normal Motor strength normal: LUE, RUE, LLE, RLE Sensory: Normal - Psychological Associated symptoms: Normal affect - Skin Skin Temperature: Warm Skin Moisture: Dry Course - Vital Signs Vital signs: Temp Pulse Resp BP Pulse Ox 98.6 F 70 25 H 127/75 H 100 08/07/19 19:12 08/07/19 20:31 08/07/19 22:01 08/07/19 22:01 08/07/19 22:01 - Laboratory Result Diagrams: 08/07/19 20:00 08/07/19 20:00 Laboratory results interpreted by me: 08/07/19 08/07/19 20:00 20:00 Creatinine 0.51 L Creatine Kinase 147 H Critical Care Note - Critical Care Note Total time excluding time spent on procedures (mins): 90 Discharge - Discharge Clinical Impression: HSV (herpes simplex virus) infection, Myalgia Sinusitis Qualifiers: Sinusitis location: frontal Chronicity: acute Recurrence: not specified as recurrent Qualified Code(s): J01.10 - Acute frontal sinusitis, unspecified Acute serous otitis media of both ears Qualifiers: Recurrence: not specified as recurrent Qualified Code(s): H65.03 - Acute serous otitis media, bilateral Condition: Good Disposition: HOME, SELF-CARE Additional Instructions: Follow-up with personal doctor return to ER as needed take medicines as directed apply Bactroban to nose nightly and encourage fluids Prescriptions: Meclizine HCl [Antivert 25 mg Tablet] 25 mg PO BID 10 Days #20 tablet Levofloxacin [Levaquin 500 mg Tablet] 500 mg PO DAILY #10 tablet Acyclovir [Zovirax 200 mg Capsule] 200 mg PO TID #30 capsule Referrals: ABIGAIL MERCEDES NP [Primary Care Provider] - Follow up as needed
[2019-08-07] MEDS ORDERED: ACYCLOVIR 200 MG CAPSULE PO ONE (23:10)
[2019-08-07] MEDS ORDERED: LEVOFLOXACIN 500 MG TABLET PO ONE (23:12)
[2019-08-07 23:44] VITALS: BP 130/108
== END 2019-08-07 23:43 | disposition home or self-care (01) ==
LOC: ER 19:10
DX: J01.10 Acute frontal sinusitis, unspecified (principal); B00.1 Herpesviral vesicular dermatitis; H65.03 Acute serous otitis media, bilateral; R42 Dizziness and giddiness; H93.13 Tinnitus, bilateral; M79.89 Other specified soft tissue disorders; M79.604 Pain in right leg; M79.605 Pain in left leg; M79.601 Pain in right arm; M79.602 Pain in left arm; R51 Headache; R53.1 Weakness; R20.0 Anesthesia of skin; R20.2 Paresthesia of skin; M79.10 Myalgia, unspecified site; Z91.048 Other nonmedicinal substance allergy status
CPT/HCPCS: 99285; 36415; 87070; 87880; 82962; 82550; 84443; 84703; 85025; 85652; 80053; 81001; 85379; J3490